=== PATIENT | female | born 1975 | race Caucasian/White ===

== ENCOUNTER 2024-07-20 10:02 | Outpatient (CLI) | payer MEDICARE, MEDICAID, SELFPAY ==
--- NOTE | ~2024-07-20 | US_ITS ---
EXAMINATION: US venous doppler LE RT DATE: 07/20/2024 10:43 INDICATION: Right lower limb pain TECHNIQUE: Grayscale ultrasound images without and with compression and Doppler ultrasound images of the right lower extremity veins were obtained. COMPARISON: None. FINDINGS: The visualized portions of right common femoral vein, profunda (deep) femoral vein, femoral vein, pop liteal vein, peroneal trunk, posterior tibial veins, peroneal veins, gastrocnemius vein and greater s aphenous vein outflow are patent. There is a 3.0 x 1.4 x 3.0 cm anechoic fluid collection along the m edial aspect of the right knee centered along the level of the joint line. IMPRESSION: 1. No deep venous thrombosis in the right lower limb. 2. 3.0 x 1.4 x 3.0 cm fluid collection along the medial aspect of the right knee which could represen t either a portion of a right knee joint effusion, a para meniscal cyst or other ganglion cyst. Reviewed, dictated and finalized at location A. IMPRESSION: 1. No deep venous thrombosis in the right lower limb. 2. 3.0 x 1.4 x 3.0 cm fluid collection along the medial aspect of the right kne e which could represent either a portion of a right knee joint effusion, a para meniscal cyst or other ganglion cyst.
== END 2024-07-20 10:03 | disposition home or self-care (01) ==
LOC: ANHIMG 10:04
PROVIDERS: PCP Family Medicine; Visit Provider Registered Nurse
DX: M79.661 Pain in right lower leg (principal)
CPT/HCPCS: 93971

== ENCOUNTER 2024-09-26 14:45 | Outpatient (RCR) | payer MEDICARE, MEDICAID, SELFPAY ==
--- NOTE | 2024-08-29 13:02 | OPREHPOC ---
Outpatient Therapy Plan of Care This is a Multidisciplinary Plan of Care that may contain components documented by all disciplines (PT, OT, and ST.) PT Problem 1 PT Problem #1 Knowledge Deficit PT Goal 1 Goal / Goal Update [place] with HEP Target Visit 4 PT Goal 2 Goal / Goal Update Demonstrate 75% reduction in palpable tenderness to left medial knee Progress Partially Met PT Problem 2 PT Problem #2 Impaired Range of Motion PT Goal 1 Goal / Goal Update 1. Achieve 0 degrees of right knee extension ROM to improve terminal stance 2. Achieve 125 degrees of R knee flexion ROM through pain free arc Target Visit 8 PT Problem 3 PT Problem #3 Impaired Functional Mobil PT Goal 1 Goal / Goal Update Report <10% disability on LEFS indicating gross functional improvement of affected knee Target Visit 8
--- NOTE | 2024-08-29 13:03 | PTOPEVAL1 ---
Assessment and note entered by Socrates Mejia, PT Evaluation Information Assessment Status Evaluation Diagnosis Unilateral OA of right knee ICD-10 Condition Codes (PT) M25.561 Onset May 2024 Subjective Information Reports that she woke up one night with medial knee pain. She has apnea and typically sleeps in the same position all night. She does not have a lot of pain with walking but notices it. She has a lot of pain with pressure and palpation. Denies groin pain or radicular pain. Reported Pain Level Pain Score 2: Self Report Assessment PT Clinical Summary Patient presents with localized pain likely related to soft tissue. Patient does not have significant mechanical related knee pain with walking but does have pain with eccentric activity . Patient will benefit form skilled therapy to address these deficits to improve knee stability and reduce pain in functional activity. Plan of Care Interventions Electrical Stimulation,Gait Training,Hot Pack/Cold Pack,Manual Therapy,Neuro Re-education, Therapeutic Activities,Therapeutic Exercise, Ultrasound PT Services Indicated Yes Treatment Frequency and 2x/week for 8 visits Duration These treatments will address the objective and functional deficits as defined above. The patient will be advanced safely and appropriately in order for the patient to progress towards his/her prior level of function. Additional exercises will be introduced and as well as a comprehensive home exercise program upon discharge, if needed, ?to ensure carryover of functional gains achieved in the clinic. This treatment plan has been reviewed and agreement upon by the patient.
--- NOTE | 2024-09-23 14:34 | PCPTNOTE ---
No call No show, reason unknown. AKSanta
--- NOTE | 2024-09-26 15:38 | OPREHPOC ---
Outpatient Therapy Plan of Care This is a Multidisciplinary Plan of Care that may contain components documented by all disciplines (PT, OT, and ST.) PT Problem 1 PT Problem #1 Knowledge Deficit PT Goal 1 Goal / Goal Update [place] with HEP Target Visit 4 Progress Met PT Goal 2 Goal / Goal Update Demonstrate 75% reduction in palpable tenderness to left medial knee Progress Partially Met PT Problem 2 PT Problem #2 Impaired Range of Motion PT Goal 1 Goal / Goal Update 1. Achieve 0 degrees of right knee extension ROM to improve terminal stance 2. Achieve 125 degrees of R knee flexion ROM through pain free arc Target Visit 8 Progress Met PT Problem 3 PT Problem #3 Impaired Functional Mobility PT Goal 1 Goal / Goal Update Report <10% disability on LEFS indicating gross functional improvement of affected knee Target Visit 8 Progress Met
--- NOTE | 2024-09-26 15:38 | PTOPDC ---
Assessment and note entered by Socrates Mejia, PT Evaluation Information Assessment Status Discharge Diagnosis Unilateral OA of right knee ICD-10 Condition Codes (PT) Pain in right knee M25.561 Onset May 2024 Subjective Information Reports that she feels she is doing much better. Still having some gait issues due to having toenails removed from her left foot. Feels comfortable with her exercises and feels comfortable with discharge to [facility] at this time. Reported Pain Level Pain Score 0: Self Report Assessment PT Clinical Summary Patient has met all goals for therapy and is suitable for discharge to [facility] at this time. No concerns with current HEP performance and she demonstrates understanding. Plan of Care PT Services Indicated Yes
== END 2024-09-27 12:11 | disposition home or self-care (01) ==
LOC: ANHPT 14:45
PROVIDERS: PCP Family Medicine; Visit Provider Nurse Practitioner Family
DX: M17.11 Unilateral primary osteoarthritis, right knee (principal); S83.411A Sprain of medial collateral ligament of right knee, initial encounter
CPT/HCPCS: 97035; 97110; 97116; 97140; 97161

== ENCOUNTER 2025-01-11 11:05 | Emergency (ER) | payer MEDICARE, MEDICAID, SELFPAY ==
--- NOTE | ~2025-01-11 | XR_ITS ---
CHEST RADIOGRAPH, PA AND LATERAL CLINICAL HISTORY: chest pain X 3 WEEKS . COMPARISON: None available TECHNIQUE: PA and lateral views of the chest. FINDINGS The cardiomediastinal silhouette is unremarkable. The lungs are clear. IMPRESSION: No focal infiltrate or effusion. Reviewed, dictated and finalized at location A.
--- NOTE | 2025-01-11 11:07 | ECG_ITS ---
Test Date: 2025-01-11 11:14:47 Measurements Intervals [place] Rate: 76 P: 69 AR: 157 QRS: 55 QRSD: 71 T: 30 QT: 379 QTc: 426 Interpretive Statements SINUS RHYTHM LOW QRS VOLTAGE IN PRECORDIAL LEADS BORDERLINE ST-T WAVE ABNORMALITY- ANT/INF LEADS BASELINE ARTIFACT- I, II, III, AVR, AVL, AVF, V4-V6 BORDERLINE ECG No previous ECG available for comparison Electronically Signed On 01-11-2025 11:28:46 CDT by Emir Munguia D.O.
[2025-01-11 11:09] VITALS: BP 146/81; PULSE 76; RESP 14; TEMP 37.2; O2SAT 98
[2025-01-11 11:34] LABS: Basophils Percent Auto 0.7 % (0.2-1.2); Eosinophils Absolute Auto 0.1 K/mm3 (0-0.3); Eosinophils Percent Auto 1.1 % (0-4.4); Hematocrit 46.1 % (37.0-47.0); Hemoglobin 15.9 g/dL (12.0-15.0); Immature Granulocyte Absolute 0.03 K/mm3 (0.00-0.031); Immature Granulocyte Percent A 0.5 % (0-0.5); Immature Platelet Fraction Pct 7.3 % (0.9-11.2); Lymphocytes Absolute Auto 1.67 K/mm3 (0.9-3.2); Lymphocytes Percent Auto 29.2 % (18.3-44.2); Mean Corpuscular HGB Conc 34.5 g/dl (32-36); Mean Corpuscular Hemoglobin 32.4 pg (26-34); Mean Corpuscular Volume 93.9 fl (80-100); Mean Platelet Volume 11.6 fl (7.4-10.4); Monocytes Absolute Auto 0.4 K/mm3 (0.1-0.6); Monocytes Percent Auto 6.1 % (2.6-8.5); Neutrophils Absolute Auto 3.6 K/mm3 (1.3-6.7); Neutrophils Percent Auto 62.4 % (45.5-73.1); Platelet Count Result 137 k/mm3 (150-375); Red Blood Count 4.91 M/mm3 (4.2-5.4); Red Cell Distribution Width 14.7 % (11.5-14.5); White Blood Count 5.7 K/mm3 (4.5-10.0)
[2025-01-11 11:37] VITALS: O2SAT 98
[2025-01-11 11:38] VITALS: PULSE 78
--- NOTE | 2025-01-11 11:38 | ED.CHESTPAIN ---
HPI - Chest Pain General Chief Complaint: Chest Pain Stated Complaint: chest pain Time Seen by Provider: 01/11/25 11:36 Source: patient and family Mode of arrival: ambulatory Limitations: no limitations History of Present Illness HPI narrative: 49 years old white female history of bipolar, came to the ED with intermittent right chest sharp stabbing pain for the last 3 weeks, no aggravating or relieving factors, mostly at rest, last maximum 2-3 minutes. Currently patient is asymptomatic. Patient smokes cigarettes, denying any alcohol or drug use or abuse. Related Data Home Medications ?Medication ?Instructions ?Recorded ?Confirmed ?Last Taken ?Type buspirone 30 mg tablet 30 mg PO TID 08/08/24 12/02/24 Unknown History cholecalciferol (vitamin D3) 50 50 mcg PO DAILY 08/08/24 12/02/24 Unknown History mcg (2,000 unit) capsule folic acid 1 mg tablet 1 mg PO DAILY 08/08/24 12/02/24 Unknown History topiramate 25 mg tablet (Topamax) 25 mg PO BID 08/08/24 12/02/24 Unknown History ziprasidone HCl 60 mg capsule 60 mg PO .2x/day 08/12/24 12/02/24 Unknown History (Geodon) adalimumab 40 mg/0.4 mL mg subcut 11/30/24 12/02/24 Unknown History subcutaneous pen kit (Humira(CF) Pen) methotrexate sodium 2.5 mg tablet 20 mg PO WEEKLY 11/30/24 12/02/24 Unknown History Allergies Allergy/AdvReac Type Severity Reaction Status Date / Time hydrocodone AdvReac Severe Itching Verified 11/30/24 14:46 iodine AdvReac Intermediate Swelling Verified 11/30/24 14:46 of Lip/Tongue/Throat Review of Systems Review of Systems: All systems reviewed & are unremarkable except as noted in HPI and below PMFSH Past Medical History Medical History Hamstring strain MCL sprain of right knee Right knee DJD Right knee pain Surgical History Surgical History History of parathyroidectomy 2021 History of laparoscopic cholecystectomy 2009 History of appendectomy 2001 Social History Social History Smoking status: Current every day smoker Alcohol intake: never Substance use type: marijuana Exam Narrative: General appearance: Well-developed, well-nourished Skin: Normal color Head: Normocephalic, nontraumatic Eyes: Clear conjunctiva ENT: Oropharynx normal, ears normal, nose normal Neck: Supple, nontender Chest and respiratory: Airway patent, no respiratory distress, no accessory muscle use Heart: Regular rate/rhythm Abdomen: Soft, nontender, no organomegaly, quiet bowel sounds Vascular: Normal peripheral pulses, normal capillary refill. 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, no gross motor deficit Course Vital Signs Vital signs: Vital Signs Temperature 37.2 C 01/11/25 11:09 Pulse Rate 76 01/11/25 11:09 Respiratory Rate 14 01/11/25 11:09 Blood Pressure 146/81 H 01/11/25 11:09 Pulse Oximetry 98 01/11/25 11:09 Oxygen Delivery Room Air 01/11/25 11:09 Temperature 37.2 C 01/11/25 11:09 Pulse Rate 72 01/11/25 12:32 Respiratory Rate 14 01/11/25 12:32 Blood Pressure 139/78 01/11/25 12:32 Pulse Oximetry 99 01/11/25 12:32 Oxygen Delivery Room Air 01/11/25 11:37 MDM - Chest Pain MDM Narrative Medical decision making narrative: Patient presents with intermittent right chest pain Vital signs showing blood pressure 146/81 otherwise within normal limit Physical examination showed tearful eyes Differential diagnosis anxiety like symptoms, musculoskeletal, less likely coronary artery disease, pulmonary embolism, pneumonia Blood workup today includes CBC, CMP, troponin, D-dimer showed hemoglobin 15.9, platelet 137, otherwise insignificant abnormalities Chest x-ray showed no acute acute abnormality EKG showed normal sinus rhythm Right chest pain high likely secondary to musculoskeletal versus anxiety like symptoms. Discharged on Tylenol, ibuprofen as needed, follow-up with her psychiatrist for further evaluation. The pt was discharged to home.the pt,s condition upon discharge was fair,education was provided to the pt in reference to the final impression,discharge study results,treatment,prognosis and need for follow up . Differential Diagnosis Differential diagnosis: Likely other (As above) Medical Records Data Attestation: I reviewed the patient's medical records. Lab Data Attestation: I reviewed the patient's lab results. 01/11/25 11:27 01/11/25 11:27 Labs: Lab Results 01/11/25 Range/Units 11:27 WBC 5.7 (4.5-10.0) K/mm3 RBC 4.91 (4.2-5.4) M/mm3 Hgb 15.9 H (12.0-15.0) g/dL Hct 46.1 (37.0-47.0) % MCV 93.9 (80-100) fl MCH 32.4 (26-34) pg MCHC 34.5 (32-36) g/dl RDW 14.7 H (11.5-14.5) % Plt Count 137 L (150-375) k/mm3 MPV 11.6 H (7.4-10.4) fl Immature Gran % (Auto) 0.5 (0-0.5) % Neut % (Auto) 62.4 (45.5-73.1) % Lymph % (Auto) 29.2 (18.3-44.2) % [place] % (Auto) 6.1 (2.6-8.5) % Eos % (Auto) 1.1 (0-4.4) % Baso % (Auto) 0.7 (0.2-1.2) % Lymph # (Auto) 1.67 (0.9-3.2) K/mm3 [place] # (Auto) 0.4 (0.1-0.6) K/mm3 Eos # (Auto) 0.1 (0-0.3) K/mm3 Baso # (Auto) 0.0 (0.0-0.1) K/mm3 Abs Immat Gran (auto) 0.03 (0.00-0.031) K/mm3 Absolute Neuts (auto) 3.6 (1.3-6.7) K/mm3 Absolute Nucleated RBC 0.000 (0.0-0.012) K/mm3 Nucleated RBC % 0.0 (0.0-0.2) % % Immature Plt Fraction 7.3 (0.9-11.2) % PT 13.4 (11.1-14.7) Seconds INR 1.0 APTT 21.7 L (22.3-36.8) Seconds D-Dimer 0.45 (<0.48) ug/mL Sodium 139 (137-145) mmol/L Potassium 4.8 (3.4-5.0) mmol/L Chloride 104 (98-107) mmol/L Carbon Dioxide 28 (22-30) mmol/L Anion Gap 7 (4-12) mmol/L BUN 22 H (7-17) mg/dL Creatinine 1.03 H (0.7-1.0) mg/dL Estim Creat Clear Calc 63 ml/min Estimated GFR 56 L (59 - ) Glucose 104 (65-110) mg/dL Calcium 8.8 (8.4-10.2) mg/dL Total Bilirubin 0.9 (0.2-1.3) mg/dL AST 23 (14-36) U/L ALT 15 (6-35) U/L Alkaline Phosphatase 65 (38-126) U/L Troponin I 0.024 (0.000-0.034) ng/mL NT-Pro-B Natriuret Pep 57 (19.9-100) pg/mL Total Protein 7.0 (6.3-8.2) g/dL Albumin 4.2 (3.5-5.1) g/dL Lipase 61 (23-300) U/L Imaging Data Radiologist's impression: Impressions Chest X-Ray 01/11/25 12:13 IMPRESSION: No focal infiltrate or effusion. ECG Data EKG #1: Attestation: I personally reviewed and interpreted this ECG as follows: ECG completion date: 01/11/25 Interpretation: Normal sinus rhythm at 76 beats per minute, low QRS voltage in precordial leads, borderline ST T-wave abnormality, borderline EKG, no previous EKG available for comparison Discharge Plan Discharge Clinical Impression: Intermittent right-sided chest pain Patient Disposition: Home Condition: Stable Instructions: Chest Pain (ED) Additional Instructions: Return if symptoms are worsening , call your family physician for appointment, take Tyleno, ibuprofen as as needed for aches and pain, continue home medications. Patient Language: Georgian Prescriptions: No Action buspirone 30 mg tablet 30 mg PO TID topiramate [Topamax] 25 mg tablet 25 mg PO BID cholecalciferol (vitamin D3) 50 mcg (2,000 unit) capsule 50 mcg PO DAILY folic acid 1 mg tablet 1 mg PO DAILY ziprasidone HCl [Geodon] 60 mg capsule 60 mg PO .2x/day Rx Instructions: give with food (meal/snack) Humira(CF) Pen 40 mg/0.4 mL pen injector kit subcut methotrexate sodium 2.5 mg tablet 20 mg PO WEEKLY Follow-up/Referrals: Willem Stone MD [Primary Care Provider] -
[2025-01-11 12:07] LABS: Prothrombin Time 13.4 Seconds (11.1-14.7)
[2025-01-11 12:08] LABS: Partial Thromboplastin Time 21.7 Seconds (22.3-36.8)
[2025-01-11 12:13] LABS: NT Pro B Type Natriuretic Pept 57 pg/mL (19.9-100)
[2025-01-11 12:20] LABS: D Dimer 0.45 ug/mL (<0.48)
[2025-01-11 12:32] VITALS: BP 139/78; PULSE 72; RESP 14; O2SAT 99
[2025-01-11] MEDS: ASPIRIN 81 MG CHEWABLE TABLET 324 MG PO (12:32)
[2025-01-11] MEDS: LORazepam (*CRX) 1 MG TABLET PO (12:32)
[2025-01-11 12:35] LABS: Alanine Aminotransferase 15 U/L (6-35); Albumin Level 4.2 g/dL (3.5-5.1); Alkaline Phosphatase 65 U/L (38-126); Anion Gap 7 mmol/L (4-12); Aspartate Amino Transferase 23 U/L (14-36); Bilirubin,Total 0.9 mg/dL (0.2-1.3); Blood Urea Nitrogen 22 mg/dL (7-17); Calcium 8.8 mg/dL (8.4-10.2); Carbon Dioxide 28 mmol/L (22-30); Chloride 104 mmol/L (98-107); Estimated CRCL calculation 63 ml/min; Estimated Glomerular Filt Rate 56; Glucose 104 mg/dL (65-110); Lipase 61 U/L (23-300); Potassium 4.8 mmol/L (3.4-5.0); Sodium 139 mmol/L (137-145)
[2025-01-11 12:42] LABS: Troponin I 0.024 ng/mL (0.000-0.034)
--- OUTSIDE RECORDS SUMMARY | 2025-01-11 12:46 | XMS_ITS | Clinical Summary ---
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 Hives post CT injection years ago. Hives post CT injection years ago. Iodine Povidone-Iodine Swelling Medium 09/29/2016 Medications busPIRone (BUSPAR) 30 mg tablet Take 1 tablet (30 mg total) by mouth 2 (two) times a day 9 Active lidocaine (GLYDO) 2 % jelly in applicator Apply to knees twice a day as needed. 5 Active methadone (DOLOPHINE) 10 mg/mL injection Acti ve raNITIdine (ZANTAC) 300 mg tablet 9 Active docusate calcium (COLACE) 240 mg capsuleIndicatio ns:constipation daily Acti ve calcium carbonate (TUMS) 500 mg (200 mg elemental) chewable tablet daily Acti ve gentian patrick 1 % topical solutionIndicati ons:cutaneous candidiasis Apply 0.5 mL topically 4 (four) times a day Apply to feet 59 mL 5 9 Active Additional Information Patient not taking.Reported on 10/12/2024 albuterol HFA (PROVENTIL HFA,VENTOLIN HFA,PROAIR HFA) 90 mcg/actuation inhaler ProAir HFA 90 mcg/actuation aerosol inhaler 9 Active furosemide (LASIX) 20 mg tablet furosemide 20 mg tablet 9 Active naloxone (NARCAN) 4 mg/actuation spray,non-aeroso l Narcan 4 mg/actuation nasal spray Active cycloSPORINE (RESTASIS) 0.05 % ophthalmic emulsion Administer 1 drop into both eyes 2 (two) times a day 60 mL 11 0 Active Additional Information Patient not taking.Reported on 10/12/2024 Climara Pro 0.045-0.015 mg/24 hr 1 Active fluconazole (DIFLUCAN) 150 mg tablet 1 Active nystatin ointment 1 Active QUEtiapine (SEROquel) 25 mg tablet 1 Active mometasone (ELOCON) 0.1 % ointment 1 Active metroNIDAZOLE (FLAGYL) 500 mg tablet 1 Active ammonium lactate (LAC-HYDRIN) 12 % lotion ammonium lactate 12 % lotion apply to feet twice daily as needed Active baclofen (LIORESAL) 10 mg tablet baclofen 10 mg tablet TK 1 T PO TID PRN Active ketoconazole (NIZORAL) 2 % cream ketoconazole 2 % topical cream Active methadone (DOLOPHINE) concentrated solution 10 mg/mL Take 2 mL (20 mg total) by mouth every 6 (six) hours as needed for pain Taking a total of 80 mg daily Active hydrOXYzine (VISTARIL) 25 mg capsule 2 Active topiramate (TOPAMAX) 25 mg tablet Take 1 tablet (25 mg total) by mouth daily 4 Active naproxen (NAPROSYN) 500 mg tablet Take 1 tablet (500 mg total) by mouth 2 (two) times a day 4 Active tacrolimus (PROTOPIC) 0.1 % ointmentIndicati ons:Psoriasis vulgaris Apply topically 2 (two) times a day Apply to groin area 100 g 2 4 Active ziprasidone (GEODON) 60 mg capsule 4 Active ergocalciferol, vitamin D2, (VITAMIN D2 ORAL) Take by mouth Active clobetasoL (TEMOVATE) 0.05 % ointmentIndicati ons:Psoriasis vulgaris Apply topically 2 (two) times a day Apply to thick plaques on hands and soles. 30 g 3 4 Active Additional Information Patient not taking.Reported on 10/12/2024 diclofenac sodium (VOLTAREN) 1 % gelIndications:P soriatic arthritis (HCC) Apply 2 g topically 3 (three) times a day as needed (pain) To both thumbs 350 g 1 4 Active folic acid (FOLVITE) 1 mg tabletIndication s:High risk medication use,Psoriasis with arthropathy (HCC) TAKE 1 TABLET(1 MG) BY MOUTH DAILY 90 tablet 3 4 Active methotrexate 2.5 mg tabletIndication s:Psoriatic arthropathy (HCC) TAKE 8 TABLETS( 20 MG TOTAL) BY MOUTH ONCE A WEEK( DOSE INCREASE) 96 tablet 1 4 Active adalimumab (Humira,CF, Pen) 40 mg/0.4 mL pen injector kitIndications:P soriatic Arthritis Inject 0.4 mL (40 mg total) under the skin every 14 (fourteen) days 6 each 2 5 Active Active Problems Problem Noted Date Diagnosed Date Preglaucoma of both eyes 02/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 Fields visual field (HVF) and OCT normal. No FHx with normal IOPs. Monitor annually. Assessment & Plan (01/05/2020 11:36 AM CDT): Testing re-assuring - normal RNFL thickness both eyes (OU). Will obtain baseline visual field (VF) next visit. IOPs normal range. No Fhx. Assessment & Plan (02/10/2019 4:52 PM CDT): Cupping appears Physiologic No FHx Normal IOPs Dry eye syndrome of both eyes 02/10/2019 Assessment & Plan (06/26/2020 5:16 PM CDT): Improved ocular surface and much better/solid endpoints on refraction. Will discontinue Restasis (burning) and try Xiidra. Recommend Retaine drops 3-4 x/day both eyes (OU) if insurance will not cover Xiidra. Inserted new lower punctal plug right eye (OD). Assessment & Plan (12/26/2019 11:21 AM CDT): Ignacio's test showing minimal to no tear production. Concern for Sjogrens as pt also reports dry mouth. (Will alert Rheum). Start Restasis BID both eyes (OU) - recommend OTC artificial tear (Soothe, Systane, Refresh) as needed. Assessment & Plan (12/19/2019 5:07 PM CDT): Pt ed - minimal to no tear production. Start Restasis BID both eyes (OU). Pt admits to dry mouth as well - alert PCP - concenr for Sjogren's syndrome 0.6 mm Oasys punctal plugs inserted today R/L lower puncta. Unable to get stable endpoints on refraction - pt ed d/t ocular surface, decreased tear production Assessment & Plan (02/10/2019 4:52 PM CDT): Mod-Severe KIRAN left eye (OS)>OD. Start Celluvisc drops QID+ both eyes (OU). Cont Systane PRN. Pt ed on dx. RTC for f/u 2 mos. Consider punctal plugs at this visit. Refractive error 02/10/2019 Assessment & Plan (06/26/2020 5:15 PM CDT): Release updated glasses Rx, recommend PAL Assessment & Plan (12/19/2019 5:05 PM CDT): Hold Rx util the tear film improves Assessment & Plan (02/10/2019 4:53 PM CDT): Update MRx Age-related nuclear cataract of both eyes 2018 Assessment & Plan (02/10/2019 4:54 PM CDT): Defer cataract surgery until signs and symptoms indicate. Pt was educated on the diagnosis. Recommend daily UV protection. 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 [place] [address] Deborah Andrea RPh from Last 3 Months Immunizations Immunization Administration Dates Next Due Influenza, Quadrivalent, Spl it, Preservative Free, Intramuscular 07/28/2019 Influenza, Trivalent, IM (MDV) 10/10/2014 Pneumococcal Polysaccharide PPV23 03/11/2017,11/2011 Medical History Medical History Date Comments Infectious viral hepatitis Psoriatic arthritis (HCC) Breathing difficulty Heart murmur Keloid Psychiatric illness Bunion of great toe of left foot Family History Medical History Relation Name Comments No Known Problems Mother Relation Name Status Comments Mother Social History Tobacco Use Types Packs/Day Years Used Date Smoking Tobacco: Every Day Smokeless Tobacco: Never Tobacco Cessation:Ready to Q uit: Not Asked; Counseling Given: Not Answered Comments Unknown Sex and Gender Information Value Date Recorded Sex Assigned at Not on file Legal Sex 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 Gender Identity Not on file Sexual Orientation Not on file Obstetrics History Last Filed Vital Signs Vital Sign Reading Time Taken Comments Blood Pressure 104/73 10/12/2024 12:51 PM BARREL STAVE INSPECTOR Pulse 64 10/12/2024 12:51 PM BARREL STAVE INSPECTOR Temperature 36.8 C (98.3 F) 10/12/2024 12:51 PM BARREL STAVE INSPECTOR Respiratory Rate - - Oxygen Saturation 97% 02/08/2015 1:43 PM CDT Inhaled Oxygen Concentration - - Weight 90.7 kg (200 lb) 10/12/2024 12:51 PM BARREL STAVE INSPECTOR Height 165.1 cm (5' 5 ) 10/12/2024 12:51 PM BARREL STAVE INSPECTOR Body Mass Index 33.28 10/12/2024 12:51 PM BARREL STAVE INSPECTOR Plan of Treatment Health Maintenance Due Date Last Done Comments Breast Cancer Screening-Mammogram 1973 Cervical Cancer Screening 1973 Colon Cancer Screening-Colonoscopy 1973 Depression Screening 1973 DTaP/Tdap/Td Vaccine (1 - Tdap) 02/19/1984 Hepatitis B Screening 1991 Regular Well Visit/Exam 18-64 1991 Zoster Vaccine (1 of 2) 02/19/1992 Pneumococcal vaccine <65 (3 of 3 - PCV) 03/11/2018 03/11/2017, 08/06/2012 Influenza Vaccine (Season Ended) 2025 07/28/20 19, 10/10/2014 Hepatitis C Screening Completed 11/07/2020 , 06/01/2019, 11/17/2018, Additional history exists Procedures Procedure Name Priority Date/Time Associated Diagnosis Comments HEPATITIS C RNA, QUANTITATIVE, PCR Routine 11/07/2020 11:29 AM BARREL STAVE INSPECTOR High risk medication use Hepatitis C virus infection cured after antiviral drug therapy from Last 3 Months or Most Recently Relevant to Health Maintenance Results * Hepatitis C (HCV) RNA PCR, quantitative (11/07/2020 11:29 AM BARREL STAVE INSPECTOR) Pathologist [facility] HCV RNA result Not Detected [facility] Comment: Interpretive data: The quantifiable range of this assay is 15 IU/mL to 100,000,000 IU/mL (1.18 log IU/mL to 8.00 log IU/mL). Testing was performed by the [employer] AmpliPrep/JABARI TaqMan HCV Test version 2.0 ([employer] Testing performed at [facility] Current Interpretive Data was last revised on 2015. Blood specimen (specimen) 11/07/2020 11:29 AM BARREL STAVE INSPECTOR 11/07/2020 12:05 PM BARREL STAVE INSPECTOR us Jo Braden MD LAB MICROBIOLOGY - GENE RAL ORDERABLES Final Result [facility] Department [place] [address] from Last 3 Months or Most Recently Relevant to Health Maintenance Insurance [employer] [facility] MEDICARE [facility] MEDICARE Address: [facility] [address] [place] [address] [facility] MEDICARE [facility] MEDICARE Address: [facility] [address] [place] [address] [facility] CHOICE PLUS [facility] HMO/PPO Address: [facility] [address] [place] [address] Care Teams Machinery Repair Maintenance Supervisor Relationship Specialty Start Date End Date No, Physician PCP - General 11/07/20
--- OUTSIDE RECORDS SUMMARY | 2025-01-11 12:46 | XMS_ITS | Referral Summary ---
Author Organization [facility] Address Formerly [facility] [place] [address] Care Team Providers Care Insurance Defense Attorney Name Role Phone No, Physician Primary Care Provider [phone] Encounters Date Type Department Care Team Description 10/13/[address] [facility] [address] [place] [address] Deborah Andrea RPh from Last 3 Months Allergies Active Allergy Reactions Criticality Noted Date [...] 02/08/2015 Snoring 02/08/2015 Insomnia 02/08/2015 Anxiety 02/08/2015 Immunizations Immunization Administration Dates Next Due Influenza, Quadrivalent, Spl it, Preservative Free, Intramuscular 07/28/2019 Influenza, Trivalent, IM (MDV) 10/10/2014 Pneumococcal Polysaccharide PPV23 03/11/2017,11/2011 Social History Tobacco Use Types Packs/Day Years Used Date Smoking Tobacco: Every Day Smokeless Tobacco: Never Tobacco Cessation:Ready to Q uit: Not Asked; Counseling Given: Not Answered Comments Unknown Sex and Gender Information Value Date Recorded Sex Assigned at Not on file Legal Sex Female 3:51 AM LIVESTOCK EXHIBITOR Gender Identity Not on file Sexual Orientation Not on file Last Filed Vital Signs Vital Sign Reading Time Taken Comments Blood Pressure 104/73 10/12/2024 12:51 PM LIVESTOCK EXHIBITOR Pulse 64 10/12/2024 12:51 PM LIVESTOCK EXHIBITOR Temperature 36.8 C (98.3 F) 10/12/2024 12:51 PM LIVESTOCK EXHIBITOR Respiratory Rate - - Oxygen Saturation 97% 02/08/2015 1:43 PM CDT Inhaled Oxygen Concentration - - Weight 90.7 kg (200 lb) 10/12/2024 12:51 PM LIVESTOCK EXHIBITOR Height 165.1 cm (5' 5 ) 10/12/2024 12:51 PM LIVESTOCK EXHIBITOR Body Mass Index 33.28 10/12/2024 12:51 PM LIVESTOCK EXHIBITOR Plan of Treatment Not on file Procedures Procedure Name Priority Date/Time Associated Diagnosis Comments HEPATITIS C RNA, QUANTITATIVE, PCR Routine 11/07/2020 11:29 AM LIVESTOCK EXHIBITOR High risk medication use Hepatitis C virus infection cured after antiviral drug therapy from Last 3 Months or Most Recently Relevant to Health Maintenance Results * Hepatitis C (HCV) RNA PCR, quantitative (11/07/2020 11:29 AM LIVESTOCK EXHIBITOR) HCV RNA result Not Detected AMELIA SHAIKH Comment: Interpretive data: The quantifiable range of this assay is 15 IU/mL to 100,000,000 IU/mL (1.18 log IU/mL to 8.00 log IU/mL). Testing was performed by the [employer]I AmpliPrep/JABARI TaqMan HCV Test version 2.0 ([employer] Testing performed at [facility] Current Interpretive Data was last revised on 2015. Blood specimen (specimen) 11/07/2020 11:29 AM LIVESTOCK EXHIBITOR 11/07/2020 12:05 PM LIVESTOCK EXHIBITOR Jo Braden MD LAB MICROBIOLOGY - GENE [facility] ORDERABLES Final Result AMELIA SHER [facility] Department [place] [address] from Last 3 Months or Most Recently Relevant to Health Maintenance Insurance IDPA [facility] MEDICARE ADVANTAGE [facility] MEDICARE Address: [id number] [place] [address] [id number] MEDICARE ADVANTAGE [facility] CHOICE PLUS [facility] HMO/PPO Address: [facility] [address] [place] [address] Care Teams Insurance Defense Attorney Relationship Specialty Start Date End Date No, Physician PCP - General 11/07/20
--- OUTSIDE RECORDS SUMMARY | 2025-01-11 12:46 | XMS_ITS | CONTINUITY OF CARE DOCUMENT ---
Author Name mauri dotson Address Unknown Organization [facility] Address [address] [place] [address] Phone [phone] Care Team Providers Care Mold Filler Plastic Dolls Name Role Phone Starr ROSS, Isidro Unavailable BARI DÍAZ MD Unavailable BARI DÍAZ MD Unavailable PROBLEMS Condition Status Date Provider Notes Bradycardia active [facility] Swollen limb active Kacie Herbert MD Tobacco abuse active Kacie Herbert MD [facility] methadone use active Kacie tinajero MD Psoriasis active Kacie Herbert MD Rheumatoid arthritis active Kacie Herbert MD Abnormal EKG active Kacie Herbert MD Anxiety active Kacie Herbert MD Cardiology examination active Isidro Clements MD Psoriatic arthritis active Isidro Clements MD Bipolar disorder active Isidro Clements MD Reich's disease, ? active Isidro Clements MD Diminished pedal pulses active Isidro Clements MD Age-related nuclear cataract of both eyes completed - Isidro Clements MD Imported from A: [facility] (03-Apr-2022 at 02:08:38 PM) Anaclitic depression completed - Isidro Clements MD Imported from [employer] (03-Apr-2022 at 02:08:38 PM) Anxiety completed - Isidro Clements MD Imported from [employer] [facility] (03-Apr-2022 at 02:08:38 PM) Bradycardia completed - Isidro Clements MD Imported from [employer] (03-Apr-2022 at 02:08:38 PM) Bronchial asthma completed - Isidro Clements MD Imported from [employer] (03-Apr-2022 at 02:08:38 PM) Dry eye syndrome of both eyes completed - Isidro Clements MD Imported from [employer] (03-Apr-2022 at 02:08:38 PM) Dry skin completed - Isidro Clements MD Imported from [employer] (03-Apr-2022 at 02:08:38 PM) Enuresis, nocturnal only completed - Isidro forde MD Imported from [employer] (03-Apr-2022 at 02:08:38 PM) Erythrocytosis completed - Isidro Clements MD Imp orted from [employer] (03-Apr-2022 at 02:08:38 PM) Fibromyalgia completed - Isidro Clements MD Imported from [employer] [facility] (03-Apr-2022 at 02:08:38 PM) Gastroesophageal reflux disease completed - Isidro Clements MD Imported from [employer] (03-Apr-2022 at 02:08:38 PM) Hepatitis C virus infection completed 2014 - Isidro Clements MD Imported from [employer] (03-Apr-2022 at 02:08:38 PM) History of parathyroidectomy completed 11/07/00 - Isidro Clements MD Imported from [facility] [facility] (03-Apr-2022 at 02:08:38 PM) Hypercalcemia completed - Isidro Clements MD Imported from [employer] [facility] (03-Apr-2022 at 02:08:38 PM) Hyperparathyroidism completed - Isidro Clements MD Imported from [employer] [facility] (03-Apr-2022 at 02:08:38 PM) Hyperplasia of parathyroid completed 12/03 - Isidro Clements MD Imported from [facility] [facility] (03-Apr-2022 at 02:08:38 PM) Ingrowing toenail completed - Isidro Clements MD Imported from [facility] [facility] (03-Apr-2022 at 02:08:38 PM) Insomnia completed - Isidro Clements MD Imported from [employer] [facility] (03-Apr-2022 at 02:08:38 PM) Lumbago completed - Isidro Clements MD Imported from [employer] [facility] (03-Apr-2022 at 02:08:38 PM) Muscle spasms of neck completed - Isidro Clements MD Imported from [facility] [facility] (03-Apr-2022 at 02:08:38 PM) Narcotic drug use completed - Isidro Clements MD Imported from [facility] [facility] (03-Apr-2022 at 02:08:38 PM) Onychomycosis completed - Isidro Clements MD Imported from [facility] [facility] (03-Apr-2022 at 02:08:38 PM) Optic nerve cupping of both eyes completed - Isidro Clements MD Imported from [employer] [facility] (03-Apr-2022 at 02:08:38 PM) Osteoarthrosis completed - Isidro Clements MD Imported from [employer] [facility] (03-Apr-2022 at 02:08:38 PM) Pain of hand completed - Isidro Clements MD Imported from [employer] [facility] (03-Apr-2022 at 02:08:38 PM) Pathological personality completed - Isidro Clements MD Imported from [employer] [facility] (03-Apr-2022 at 02:08:38 PM) Preglaucoma of both eyes completed - Isidro Clements MD Imported from [employer] [facility] (03-Apr-2022 at 02:08:38 PM) Psoriasis completed - Isidro Clements MD Imported from [employer] (03-Apr-2022 at 02:08:38 PM) Psoriasis with arthropathy completed 04/05 - Isidro Clements MD Imported from [facility] [facility] (03-Apr-2022 at 02:08:38 PM) Refractive error completed - Isidro Clements MD Imported from [employer] [facility] (03-Apr-2022 at 02:08:38 PM) Rheumatoid arthritis completed - Isidro Clements MD Imported from [employer] (03-Apr-2022 at 02:08:38 PM) Sleep apnea treated with nocturnal BiPAP completed - Isidro Clements MD Imported from [facility] [facility] (03-Apr-2022 at 02:08:38 PM) Snoring completed - Isidro Clements MD Imported from [employer] (03-Apr-2022 at 02:08:38 PM) Stage 3a chronic kidney disease completed - Isidro Clements MD Imported from [employer] (03-Apr-2022 at 02:08:38 PM) Swelling completed - Isidro Clements MD Imported from [facility] (03-Apr-2022 at 02:08:38 PM) Tear of medial meniscus of knee, current completed - Isidro Clements MD Imported from [facility] [facility] (03-Apr-2022 at 02:08:38 PM) Thyroid nodule completed - Isidro Clements MD Imported from [facility] [facility] (03-Apr-2022 at 02:08:38 PM) Tobacco dependence syndrome active Isidro pearson MD Imported from [facility] [facility] (03-Apr-2022 at 02:08:38 PM) Trochanteric bursitis completed - Isidro Clements MD Imported from [employer] [facility] (03-Apr-2022 at 02:08:38 PM) Erythrocytosis active Isidro Clements MD ENCOUNTERS Date Type Provider Location Encounter Diag nosis 04/28 - 04/29 In-person encounter Office Visit Isidro Clements MD [facility] Age-related nuclear cataract of both eye sAnaclitic depressionAnxietyBradycardiaBronchial asthmaDry eye syndrome of both eyesDry skinEnuresis, nocturnal onlyErythrocytosisFibromyalgiaGastroesophageal reflux diseaseHepatitis C virus infectionHistory of parathyroidectomyHypercalcemiaHyperparathyroidismHyp erplasia of parathyroidIngrowing toenailInsomniaLumbagoMuscle spasms of neckNarcotic drug useOnychomycosisOptic nerve cupping of both eyesOsteoarthrosisPain of handPathological personalityPreglaucoma of both eyesPsoriasisPsoriasis with arthropathyRefractive errorRheumatoid arthritisSleep apnea treated with nocturnal BiPAPSnoringStage 3a chronic kidney diseaseSwellingTear of medial meniscus of knee, currentThyroid noduleTrochanteric bursitisErythrocytosis 04/03 - 04/18 In-person encounter Office Visit Isidro Clements MD [facility] Cardiology examinationPsoriatic arthriti sBipolar disorderBerger's disease, ?Diminished pedal pulsesTobacco dependence syndrome 04/15 - 04/15 In-person encounter Office Visit Kacie Herbert MD [facility] 02/11 - 02/11 In-person encounter Office Visit Kacie Herbert MD [facility] Swollen limbTobacco abuseLong term metha done usePsoriasisRheumatoid arthritisAbnormal EKGAnxiety VITAL SIGNS Date Observation Value Provider Body Mass Index (Ratio) 29.95 kg/m2 Cuba Clements MD blood pressure, diastolic 68 mm[Hg] Sa ra Pardo blood pressure, systolic 111 mm[Hg] Fred a Pardo oxygen saturation, oximetry 38 % Sarita Pardo respiratory rate E&M 21 /min Sarita Si ms pulse rate 80 /min Sarita Pardo weight E&M 180 [lb_av] Sarita Pardo blood pressure, cuff size regular Sa ra Pardo height E&M 65 [in_i] Sarita Pardo Body Mass Index (Ratio) 30.12 kg/m2 Cuba Clements MD blood pressure, cuff size large Ke rri Gruenenfelder blood pressure, diastolic 80 mm[Hg] Ke rri Gruenenfelder blood pressure, systolic 138 mm[Hg] Ker ri Girishuenenfelder oxygen saturation, oximetry 96 % Leeann Coliner respiratory rate E&M 16 /min Leeann G ruenenfelder pulse rate 59 /min Leeann Rebecca lder weight E&M 181 [lb_av] Leeann Grueneace lder height E&M 65 [in_i] Leeann Gruenepaolo lder Body Mass Index (Ratio) 31.31 kg/m2 Lavelle Spangler blood pressure, cuff size regular Cy fercho Bernard blood pressure, diastolic 70 mm[Hg] Cy fercho Bernard blood pressure, systolic 130 mm[Hg] Pari Bernard oxygen saturation, oximetry 98 % Debby Bernard respiratory rate E&M 16 /min Debby Bernard pulse rate 64 /min Debby mack weight E&M 194 [lb_av] Debby mack height E&M 66 [in_i] Debby mack Body Mass Index (Ratio) 30.99 kg/m2 Trav Herbert MD blood pressure, cuff size large Ke rri Elina blood pressure, diastolic 80 mm[Hg] Ke rri Elina blood pressure, systolic 122 mm[Hg] Tamia Antoine oxygen saturation, oximetry 98 % Leeann Antoine respiratory rate E&M 20 /min Leeann morales pulse rate 74 /min Leeann Fernandez lder weight E&M 192 [lb_av] Leeann Fernandez lder height E&M 66 [in_i] Leeann Fernandez lder ALLERGIES Allergy Name Onset Date Reaction Criticality Status Povidone-Iodine Low Criticality acti ve Iodinated Contrast Media Low Critica lity active Contrast-Iodinated Agents Fo r Ct/Other Itching Itching Low Criticality active HYDROCODONE High Criticality active IVP DYE High Criticality active HYDROCODONE Low Criticality active IVP DYE Low Criticality active HISTORY OF MEDICATION USE Medication Status Instructions Dates Provider Indications Com ments ziprasidone HCl 40 mg capsule active 40 mg oral qieuser qieuser Imported from [facility]: [employer] [facility] (03-Apr-20 at 02:08:38 PM) ziprasidone HCl 20 mg capsule active null qieuser q[facility]user Imported from [employer]: [employer] (03-Apr-20 at 02:08:38 PM) raNITIdine active null qieuser [facility]user Imported from [employer]: [employer] [facility] (03-Apr-20 at 02:08:38 PM) nystatin 100,000 unit/gram ointment active null qieuser [facility]user Imported from [employer]: [employer] [facility] (03-Apr-20 at 02:08:38 PM) naloxone active null qieuser [employer] Imported from [employer]: [employer] [facility] (03-Apr-20 at 02:08:38 PM) mometasone 0.1% ointment active null qieuser [facility] Imported from [employer]: [employer] (03-Apr-20 at 02:08:38 PM) metronidazole 500 mg tablet active null qieuser [facility] Imported from [employer]: [employer] [facility] (03-Apr-20 at 02:08:38 PM) methotrexate sodium 2.5 mg tablet completed 20 mg oral - qieuser q[facility]user Imported from [employer]: [employer] (03-Apr-20 at 02:08:38 PM) methotrexate sodium 2.5 mg tablet active Oral qieuser q[facility]user Imported from [employer]: [employer] (03-Apr-20 at 02:08:38 PM) methadone 10 mg/mL concentrate active 20 mg oral qieuser [facility] Imported from [facility] [facility] (03-Apr-20 at 02:08:38 PM) methadone 10 mg/mL solution active null qieuser [facility] Imported from [employer] (03-Apr-20 at 02:08:38 PM) lidocaine active null qieuser [facility] Imported from [employer]: [employer] (03-Apr-20 at 02:08:38 PM) ketoconazole 2% cream active null q[facility]user [employer] Imported from [employer] (03-Apr-20 at 02:08:38 PM) gentian patrick 1% solution active .5 mL topical qieuser [facility] Imported from [employer] (03-Apr-20 at 02:08:38 PM) furosemide 20 mg tablet active null q[facility]user [employer] Imported from [employer] (03-Apr-20 at 02:08:38 PM) folic acid 1 mg tablet completed 1 mg oral - qieuser q[facility]user Imported from [employer] (03-Apr-20 at 02:08:38 PM) folic acid 1 mg tablet active 1 mg Oral qieuser [facility]user Imported from [employer] (03-Apr-20 at 02:08:38 PM) fluconazole 150 mg tablet active null [facility]user [employer] Imported from [employer] (03-Apr-20 at 02:08:38 PM) docusate calcium 240 mg capsule active null qieuser [employer] Imported from [employer] (03-Apr-20 at 02:08:38 PM) diclofenac sodium 1% gel active 2 g topical qieuser [facility] Imported from [employer] (03-Apr-20 at 02:08:38 PM) cycloSPORINE active 1 [drp] each eye qieuser [facility] Imported from [employer] (03-Apr-20 at 02:08:38 PM) clobetasol 0.05% cream active topical qieuser [facility] Imported from [employer] (03-Apr-20 at 02:08:38 PM) calcium carbonate 200 mg calcium (500 mg) tablet,chewable active null qieuser [facility] Imported from [employer] (03-Apr-20 at 02:08:38 PM) buspirone 30 mg tablet active 30 mg oral qieuser [facility] Imported from [employer] (03-Apr-20 at 02:08:38 PM) baclofen 10 mg tablet active null qieuser [facility] Imported from [employer]: [facility] (03-Apr-20 at 02:08:38 PM) ammonium lactate 12% lotion active null qieuser [facility] Imported from [employer]: [facility] (03-Apr-20 at 02:08:38 PM) albuterol sulfate 90 mcg/actuation HFA aerosol inhaler active null q[facility]user [employer] Imported from [employer]: [employer] (03-Apr-20 at 02:08:38 PM) albuterol sulfate 90 mcg/actuation HFA aerosol inhaler active 2 {puff} Inhalation qieuser q[facility]user Imported from [employer]: [employer] (03-Apr-20 at 02:08:38 PM) Xiidra 5% dropperette active null qieuser [facility] Imported from [employer]: [facility] (03-Apr-20 at 02:08:38 PM) quetiapine 25 mg tablet active null qieuser [employer] Imported from [employer]: [employer] (03-Apr-20 at 02:08:38 PM) Drug or medicament active 80 mg Oral qieuser qieuser Imported from [employer]: [facility] (03-Apr-20 at 02:08:38 PM) Drug or medicament active 30 mg Oral qieuser [facility]user Imported from [employer]: [facility] (03-Apr-20 at 02:08:38 PM) Drug or medicament active 80 mg Oral qieuser [facility]user Imported from [employer]: [employer] [facility] (03-Apr-20 at 02:08:38 PM) Climara Pro 0.045-0.015 mg/24 hr patch weekly active null qieuser [employer] Imported from [employer]: [facility] (03-Apr-20 at 02:08:38 PM) folic acid 1 mg tablet active Isidro Clements MD ziprasidone HCl 40 mg capsule active Isidro Clements MD buspirone 30 mg tablet active Isidro Clements MD methotrexate sodium 2.5 mg tablet active Isidro Clements MD GEODON CAPSULE active 20 mg 1 by mouth twice daily Ximena Golden METHADONE HCL TABLET active take one pill a day Leeann Antoine SOCIAL HISTORY Date Observation Value Provider number of grandchildren Isidro Clements MD U janeen Clements MD social history reviewed E&M revi ewed - no changes required Isidro Clements MD social history E&M S moking History: P atient currently smokes every day. P atjeet has been counseled to quit. Isidro Clements MD smoking/tobacco cess ation, patient education and counseling yes Isidro Clements MD number of years as a smoker 35 a Isidro Clements MD smoking history, tot al pack/day 1 ppd Isidro Clements MD cigarette use yes Isidro Hickey smoking status Current every day smoker U janeen Clements MD drug use no Isidro Clements MD alcohol use no Isidro Clements MD social history reviewed E&M revi ewed - no changes required Isidro Clements MD social history E&M S moking History: P atient currently smokes every day. P atjeet has been counseled to quit. Isidro Clements MD smoking/tobacco cess ation, patient education and counseling yes Isidro Clements MD number of years as a smoker 35 a Leeann Antoine smoking history, tot al pack/day 1 ppd Leeann Antoine cigarette use yes Leeann hanson smoking status Current every day smoker K bere Antoine physical exercise, f requency, days per week 14 /wk Ximena Golden exercise type steps clager caffeine use, averag e drinks per day 4 /d ager smoking/tobacco cess ation, patient education and counseling yes clager smoking history, tot al pack/day 1.5 Ximenaclager cigarette use yes clager smoking status Current every day smoker Arash mcnally clager social history E&M S moking History: Debi ortiz currently smokes every day. Kacie Herbert MD social history reviewed E&M revi ewed - no changes required Kacie Herbert MD alcohol use no Debby Keron mack number of years as a smoker 30 a Debby Bernard smoking history, tot al pack/day 1.5 ppd Debby Marco Antonio cigarette use yes Debby Toma sales smoking status Current every day smoker C alfonsosrinivasa Marco Antonio number of grandchildren Kacie Herbert MD alcohol use no Leeannboo higginser number of years as a smoker 30 a Leeann Antoine smoking history, tot al pack/day 1.5 ppd Leeann Antoine cigarette use yes Leeann hanson smoking status Current every day smoker K bessiei Elina FAMILY HISTORY Family Member Condition Half Sister Family History of Co ronary Artery Disease: Half Sister Family History of CV A or Stroke: Mother Negative FH of Coron trevon Artery Disease Father Family History of Hy pertension: Father Family History of CV A or Stroke: INSURANCE PROVIDERS Payer name Policy type / Coverage type Bangs red green party ID AARP MEDICARE ADVANTAGE ([facility] COMPLETE PPO) Other [id number] HEALTHCARE AND FAMILY SERVICES Medicaid 0 [id number] ADVANCE DIRECTIVES Name Date DISCUSSED - NO DECISION MADE DISCUSSED - NO DECISION MADE TREATMENT PLAN Date Name Performer [id number],C, A lthough she still has symptoms, I do not think they are based on vascular disease. I have recommended she stop smoking but I don't think she has Buergher's disease. Isidro Clements MD [id number],S, T he Patient was reencouraged to stop smoking. Isidro Clements MD [id number],C,Will do an AB I Isidro Clements MD [id number],C,Advised to st op smoking. Kacie Herbert MD [id number],C,Management as per yourself. Kacie Herbert MD [id number],C,I n sinus rhythm. Her recent Telesentry showed sinus rhythm and no other abnormality. Stress test showed normal perfusion and echo showed normal LV size and function. Kacie Herbert MD [id number],C,T rouble with pain in her hips and is due to be seen at [facility] Kacie Herbert MD [id number],B, Kacie tinajero MD [id number],S, Kacie tinajero MD Cardiology: A lthough she still has symptoms, I do not think they are based on vascular disease. I have recommended she stop smoking but I don't think she has Buergher's disease. Isidro Clements MD Cardiology: T he Patient was reencouraged to stop smoking. Isidro Clements MD Cardiology:Will do an LANNY Isidro Clements MD Cardiology follow up :Advised to stop smoking. Kacie Herbert MD Cardiology follow up :Management as per yourself. Kacie Herbert MD Cardiology follow up :In sinus rhythm. Her recent Telesentry showed sinus rhythm and no other abnormality. Stress test showed normal perfusion and echo showed normal LV size and function. Kacie Herbert MD Cardiology follow up :Trouble with pain in her hips and is due to be seen at [facility] Kacie Herbert MD Cardiology New Patientn Kacie Herbert MD Cardiology New Patientn Kacie Herbert MD Date Name Arterial Duplex Bi-L ower EX Mobile Cardiac Tele STR - Adenosine Complete Echo HISTORY OF PROCEDURES Procedure Date Procedure Name Provider Procedure Notes S tatus EKG Isidro Clements MD completed EKG Kacie Herbert MD complet ed Regadenoson, 4 units Kacie Herbert MD completed Cardiolite, 2 units Kacie Herbert MD completed SPECT Images Kacie Herbert MD compl eted Stress EKG Kacie Herbert MD complet ed Mobile Cardiac Telem etry - Tech Kacie Herbert MD completed Mobile Cardiac Telem etry - Prof Kacie Herbert MD completed EKG Kacie Herbert MD complet ed
--- OUTSIDE RECORDS SUMMARY | 2025-01-11 12:47 | XMS_ITS | Clinical Summary ---
Author Organization [facility] Address [address] [place] [address] Care Team Providers Care Pe Teacher Name Role Phone Willem Stone MD Primary Care Provider [phone] Source Comments [facility],non-owned Affiliates and Associated Physician Practices is amultiple site organization consisting of ambulatory clinics and hospital sitesin [place], [place], [place] and [place]. This disclosure is being madepursuant to the Care Everywhere program and may not contain all information available regarding this patient. Last updated 18.[facility] [place] Allergies Active Allergy Reactions Criticality Noted Date Comments Contrast-Iodinated Agents For Ct/Other Urticaria,Itching Medium 10/31/[address] injection years ago. Hives post CT injection years ago. Hydrocodone Itching Medications * Be aware that medications may not be up to date on this document. Alwaysverify current medications with the patient. Medication Sig Dispensed Refills Start Date End Date Status METHADONE HCL PO Take 80 mg by mouth once daily Active folic acid (Folvite) 1 MG tablet 06/07/2022 Active busPIRone (Buspar) 30 MG tablet 07/14/2022 Active cyclobenzaprine (Flexeril) 5 MG tablet Take 1 (one) tablet by mouth 3 times daily 12/23/2022 Active vitamin D3 (Cholecalciferol) (25 MCG) 1000 UNIT capsule Take 25 mcg by mouth once daily Active tacrolimus (Protopic) 0.1 % ointment 11/02/2023 Active ziprasidone (Geodon) 60 MG capsule 11/12/2023 Active topiramate (Topamax) 25 MG tablet Take 1 (one) tablet by mouth 2 times daily Active diclofenac sodium (Voltaren) 1 % gel Apply 2 (two) g to affected area 3 times daily as needed 07/04/2024 Active ketoconazole (Nizoral) 2 % cream APPLY TOPICALLY TO THE AFFECTED toenails EVERY DAY Active Humira, 2 Pen, 40 MG/0.4ML injection INJECT 0.4ML SUBCUTANEOUS EVERY 14 DAYS 10/12/2024 Active clobetasol (Temovate) 0.05 % cream APPLY TOPICALLY TWICE DAILY TO HAND Active methotrexate 2.5 MG tablet Take 8 (eight) tablets by mouth every 7 days Active Active Problems Problem Noted Date Diagnosed Date Elevated hemoglobin 10/08/2022 Cigarette smoker 02/24/2022 Tinea pedis 02/24/2022 Hyperplasia of parathyroid 12/03/2021 History of parathyroidectomy 12/03/2021 Osteoarthrosis 11/18/2021 Tear of medial meniscus of knee, current 022 Dry skin 08/19/2021 Ingrowing toenail 08/19/2021 Thyroid nodule 06/25/2021 Hypercalcemia 03/12/2021 Hyperparathyroidism 03/12/2021 Stage 3a chronic kidney disease 03/08/2021 Onychomycosis 11/27/2020 Sleep apnea treated with nocturnal BiPAP 020 Overview (05/06/2021): Sleep Architecture: During this diagnostic study, the patient was monitored from 10:42 pm to 12:48 am. The patient slept for 118 minutes and had normal sleep efficiency of 93.6%. The patient's initial sleep latency was reduced at 2.5 minutes. The patient had no REM sleep during the diagnostic study. The wake after sleep onset (WASO) time was 6 minutes. The sleep architecture was as follows: stage N1: 6.4%; stage N2: 46.6%; stage N3: 47%; stage REM: 0%. Respiratory Analysis: The patient's overall apnea-hypopnea index (AHI) was increased at 32.5 per hour while the respiratory effort-related arousal index was 2 per hour. The overall respiratory disturbance index (RDI) was 34.5 per hour. The patient slept entirely in the supine position during the diagnostic study. There were 11 obstructive apneas, 17 central apneas, 21 mixed apneas, 15 hypopneas, and 4 respiratory effort-related arousals (RERA). There was no evidence of periodic breathing. Oximetry Data: The minimum oxygen saturation was decreased at 86%. The time spent with oxygen saturation less than 88% was 1 minute of the total diagnostic recording time. Snoring Profile: Rare midl snoring was detected during this study. Periodic Limb Movements: The patient's periodic limb movement index was within normal limits at 0 per hour. EEG Profile: The patient's total arousal index was elevated at 35.5 per hour. Virtually all of the arousals were due to respiratory events. There was no epileptiform activity during sleep. Cardiac Profile: EKG showed normal sinus rhythm. No clinically significant arrhythmia was noted. Parasomnias: No parasomnia was noted during this diagnostic study. Gastroesophageal reflux disease 08/17/2019 Age-related nuclear cataract of both eyes 2018 Overview (08/17/2019): Last Assessment & Plan: Defer cataract surgery until signs and symptoms indicate. Pt was educated on the diagnosis. Recommend daily UV protection. Dry eye syndrome of both eyes 02/10/2019 Overview (10/17/2020): Last Assessment & Plan: Mod-Severe KIRAN left eye (OS)>OD. Start Celluvisc drops QID+ both eyes (OU). Cont Systane PRN. Pt ed on dx. RTC for f/u 2 mos. Consider punctal plugs at this visit. Last Assessment & Plan: Ignacio's test showing minimal to no tear production. Concern for Sjogrens as pt also reports dry mouth. (Will alert Rheum). Start Restasis BID both eyes (OU) - recommend OTC artificial tear (Soothe, Systane, Refresh) as needed. Last Assessment & Plan: Improved ocular surface and much better/solid endpoints on refraction. Will discontinue Restasis (burning) and try Xiidra. Recommend Retaine drops 3-4 x/day both eyes (OU) if insurance will not cover Xiidra. Inserted new lower punctal plug right eye (OD). Optic nerve cupping of both eyes 02/10/2019 Overview (06/19/2020): Last Assessment & Plan: Cupping appears Physiologic No FHx Normal IOPs Last Assessment & Plan: Physiologic cupping both eyes (OU). Fields visual field (HVF) and OCT normal. No FHx with normal IOPs. Monitor annually. 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 (AF LURIA, FLUZONE TRIVALENT; 6MO+) (IIV3) 10/10/2014 INFLUENZA VACCINE, QUADR. (F LUZONE; FLULAVAL; FLUARIX; AFLURIA QUADRIVALENT; 6MO+), 0.5 ML (IIV4) 07/28/2019 PNEUMOCOCCAL PPSV23 03/11/2017,08/06/2012 Family History Medical History Relation Name Comments Anxiety Disorder Brother 1 meche Bipolar Disorder Brother 1 meche Depression Brother 1 meche Sleep Disorder - Other Brother 1 meche elias Anxiety Disorder Brother 2 brea Bipolar Disorder Brother 2 brea Depression Brother 2 brea Anxiety Disorder Brother 3 delmy Bipolar Disorder Brother 3 delmy Depression Brother 3 delmy CAD (Coronary Artery Disease) Father Depression Father Sleep Disorder - Other Father elias Diabetes - Type 2 Maternal Grandfather Cancer - Uterine Maternal Grandmother Anxiety Disorder Mother Anxiety Disorder Sister 1 miguel ángel Bipolar Disorder Sister 1 miguel ángel CAD (Coronary Artery Disease) Sister 1 miguel ángel Depression Sister 1 miguel ángel Hypertension Sister 1 miguel ángel Anxiety Disorder Sister 2 lamonte Bipolar Disorder Sister 2 lamonte Cancer - Liver Sister 2 lamonte Depression Sister 2 lamonte Anxiety Disorder Sister 3 maureen Bipolar Disorder Sister 3 maureen Depression Sister 3 maureen Sleep Disorder - Other Sister 3 maureen Anxiety Disorder Sister 4 kaylyn Bipolar Disorder Sister 4 kaylyn Cancer - Pancreatic Sister 4 kaylyn Depression Sister 4 kaylyn Thyroid Disease Sister 4 kaylyn Anxiety Disorder Sister 5 estrella Bipolar Disorder Sister 5 estrella Depression Sister 5 estrella Relation Name Status Comments Brother 1 meche Alive Brother 2 brea Alive Brother 3 delmy Alive Daughter Alive Father Alive Maternal Grandfather Maternal Grandmother Mother Alive Paternal Grandfather Paternal Grandmother Sister 1 miguel ángel Alive Sister 2 lamonte Sister 3 maureen Sister 4 kaylyn Alive Sister 5 estrella Alive Son 1 Alive Son 2 Alive Social History Tobacco Use Types Packs/Day Years Used Date Smoking Tobacco: Every Day Cigarettes 1.5 38.3 Started: 1986 Smokeless Tobacco: Never Tobacco Cessation:Ready to Q uit: Not Asked; Counseling Given: Not Answered Comments:not ready to quit but cutting down 10/2020 down to 10/06 ppd Alcohol Use Standard Drinks/Week Comments Yes 0 (1 standard drink = 0.6 oz pur e alcohol) in past Overall Financial Resource Strain (CARDIA) Answe r Date Recorded Difficulty of Paying Living Expenses Not hard at all 08/17/2019 Hunger Vital Sign Answer Date Recorded Worried About Running Out of Food in the Last Ye ar Never true 08/17/2019 Ran Out of Food in the Last Year Never true 08/17/2019 PRAPARE - Transportation Answer Date Re corded Lack of Transportation (Medical) No 08/17/2019 Lack of Transportation (Non-Medical) No 08/17/2019 Education Answer Date Recorded What is the highest level of school you have completed or the highest degree you have received? GED or equivalent Sex and Gender Information Value Date Recorded Sex Assigned at Not on file Gender Identity Not on file Sexual Orientation Not on file Last Filed Vital Signs Vital Sign Reading Time Taken Comments Blood Pressure 106/67 11/09/2024 3:53 PM PYTHON WEB DEVELOPER Pulse 60 11/09/2024 3:53 PM PYTHON WEB DEVELOPER Temperature 36.6 C (97.8 F) 11/01/2021 7:32 AM PYTHON WEB DEVELOPER Respiratory Rate 18 11/01/2021 7:32 AM PYTHON WEB DEVELOPER Oxygen Saturation 97% 11/01/2021 7:32 AM PYTHON WEB DEVELOPER Inhaled Oxygen Concentration 21% 11/01/2021 2 :37 AM PYTHON WEB DEVELOPER Weight 86.2 kg (190 lb) 11/09/2024 3:53 PM PYTHON WEB DEVELOPER Height 165.1 cm (5' 5 ) 11/09/2024 3:53 PM PYTHON WEB DEVELOPER Body Mass Index 31.62 11/09/2024 3:53 PM PYTHON WEB DEVELOPER Plan of Treatment Upcoming Encounters Date Type Department Care Team (Late st Contact Info) Description 04/10/2025 2:00 PM CDT Office Visit [facility] - Sleep Services [address] [place] [address] Afshan Lemos, APNP-COSTUME DESIGN TEACHER [address] DIV OF PULMONARY/[place] [address] Health Maintenance Due Date Last Done Comments COLOGUARD (AGES 45-75) - COLON CA SCREENING 1973 COLON MONITORING 1973 COLONOSCOPY - COLON CA SCREENING 1973 CT COLONOGRAPHY - COLON CA SCREENING 1973 Colorectal Cancer Screening 1973 FIT - COLON CA SCREENING 1973 FLEX SIG - COLON CA SCREENING 1973 MAMMOGRAM 1973 PAP SMEAR 1973 HIV SCREENING 02/19/1988 DTAP/TDAP/TD VACCINES (1 - Tdap) 02/19/1992 HEPATITIS B VACCINE (1 of 3 - 19+ 3-dose series) 02/19/1992 PNEUMOCOCCAL VACCINE 50+ (2 of 2 - PCV) 03/11/2018 03/11/2017, 08/06/2012 LUNG CANCER SCREENING 2023 ZOSTER VACCINE (1 of 2) 2023 COVID-19 VACCINE (1 - season) 2024 DEPRESSION SCREENING 10/05/2024 MEDICARE AWV CALENDAR YEAR 2024 SCREENING FOR DIABETES 10/31/2024 10/31/2021 INFLUENZA VACCINE (Season Ended) 2025 07/28/2019, 10/10/2014 LIPID TESTING 12/14/2028 12/15/2023, 09/0 05/2023, 12/22/2022, Additional history exists HEPATITIS C SCREENING Completed 03/30/2015 HIB VACCINE Aged Out No longer eligi ble based on patient's age to complete this topic HPV VACCINE Aged Out No longer eligi ble based on patient's age to complete this topic MENINGOCOCCAL (Group B) VACCINE SHARED DECISION-MAKING Aged Out No longer eligible based on patient's age to complete this topic MENINGOCOCCAL GROUPS A/C/Y/W VACCINE Aged Out No longer eligible based on patient's age to complete this topic Procedures Procedure Name Priority Date/Time Associated Diagnosis Comments COMPREHENSIVE METABOLIC PANEL STAT 10/31/2021 10:55 AM PYTHON WEB DEVELOPER Preop examination from Last 3 Months or Most Recently Relevant to Health Maintenance Results * (ABNORMAL) COMPREHENSIVE METABOLIC PANEL (10/31/2021 10:55 AM PYTHON WEB DEVELOPER) BUN 17 7 - 26 mg/dL 10/31/2021 11:37 AM [facility] Creatinine 1.15(H) 0.56 - 0.96 mg/dL 10/31/2021 11:37 AM [facility] Sodium 144 136 - 145 mmol/L 10/31/2021 11:37 AM [facility] Potassium 4.6(H) 3.5 - 4.5 mmol/L 10/31/2021 11:37 AM [facility] Chloride 107 98 - 107 mmol/L 10/31/2021 11:37 AM [facility] CO2 27 22 - 29 mmol/L 10/31/2021 11:37 AM [facility] Glucose 91 70 - 115 mg/dL 10/31/2021 11:37 AM [facility] Calcium 10.8(H) 8.4 - 10.2 mg/dL 10/31/2021 11:37 AM [facility] Protein Total 6.9 6.0 - 8.3 g/dL 10/31/2021 11:37 AM [facility] Albumin 4.0 3.4 - 5.0 g/dL 10/31/2021 11:37 AM [facility] Bilirubin Total 0.9 0.2 - 1.2 mg/dL 10/31/2021 11:37 AM [facility] Alkaline Phosphatase 87 40 - 150 U/L 10/31/2021 11:37 AM [facility] ALT 56(H) 5 - 55 U/L 10/31/2021 11:37 AM [facility] AST 21 5 - 34 U/L 10/31/2021 11:37 AM [facility] Anion Gap 15 8 - 18 10/31/2021 11:37 AM [facility] BUN/Creatinine Ratio 15 7 - 23 10/31/2021 11:37 AM [facility] Osmolality Calculated 299 270 - 300 mOsm/kg 10/31/2021 11:37 AM [facility] Albumin/Globulin Ratio 1.4 1.1 - 2.3 10/31/2021 11:37 AM [facility] eGFR by CKD-EPI 56(L) >=90 mL/min/1.7 3 m2 10/31/2021 11:37 AM [facility] Blood BLOOD SPECIMEN / Unknown Venipuncture / Unknown 10/31/2021 10:55 AM PYTHON WEB DEVELOPER 10/31/2021 11:10 AM [facility] Chalo Pardo MD LAB - CHEMISTRY NIVIA PORTILLO [facility] Organization Address City/State/ZIP Co de Phone Number [facility] [address] [place] [address] [phone] from Last 3 Months or Most Recently Relevant to Health Maintenance Advance Directives * Full Code (Latest Code Status on File) Date Activated Date Inactivated Comments 10/31/2021 6:16 PM 11/01/2021 12:59 PM * Full Code Date Activated Date Inactivated Comments 10/31/2021 9:08 AM 10/31/2021 6:16 PM Care Teams Pe Teacher Relationship Specialty Start Date End Date Willem Stone MD [address] [facility] [address] [facility] [address] [place] [address] PCP - General 01/07/23
--- OUTSIDE RECORDS SUMMARY | 2025-01-11 12:47 | XMS_ITS | Encounter Summary ---
Author Organization [facility] Address [address] [place] [address] Care Team Providers Care Stretcher Operator Name Role Phone Willem Stone MD Primary Care Provider [phone] Reason for Referral * Consultation (Routine) - Denied Specialty Diagnoses / Procedures Referred By Jv t Referred To Contact Neurology Diagnoses Stage 3 chronic kidney disease, unspecified whether stage 3a or 3b CKD (HCC) Jaime Zuniga, ANNELIESE-BICYCLE COURIER [address] [place] [address] [facility] [address] [address] Referral ID Status Reason Start Date Expiration Date V isits Requested Visits Authorized [id number] Denied Specialty Services Required 08/11/2024 08/11/2025 1 0 ET PATCHER Encounter Details Date Type Department Care Team (Latest Contact Info) Description 08/11/2024 Transcribe Orders [facility] - Centralized Scheduling [address] [place] [phone] Jaime Zuniga APRN-BICYCLE COURIER [address] [place] [address] Stage 3 chronic kidney disease, unspecified whether stage 3a or 3b CKD Social History Tobacco Use Types Packs/Day Years Used Date Smoking Tobacco: Every Day Cigarettes 1.5 38.3 Started: 1986 Smokeless Tobacco: Never Comments:not ready to quit b ut cutting down 10/2020 down to / ppd Alcohol Use Standard Drinks/Week Comments No 0 (1 standard drink = 0.6 oz [...] on file Sexual Orientation Not on file documented as of this encounter Plan of Treatment Upcoming Encounters Date Type Department Care Team (Late st Contact Info) Description 04/10/2025 2:00 PM CDT Office Visit [facility] - Sleep Services [address] [place] [id number] Afshan Lemos, APKRYSTAL-BICYCLE COURIER [address] [facility] [address] DIV OF PULMONARY/[place] [address] Scheduled Referrals Name Type Priority Associated Diagnoses Orde r Schedule AMB REFERRAL TO NEUROLOGY Outpatient Referral Routine Stage 3 chronic kidney disease, unspecified whether stage 3a or 3b CKD 1 Occurrences starting 08/11/2024 until 08/11/2025 documented as of this encounter Visit Diagnoses Diagnosis Stage 3 chronic kidney disease, unspecified whether stage 3a or 3b CKD (HCC)- Primary documented in this encounter Care Teams Stretcher Operator Relationship Specialty Start Date End Date Willem Stone MD [address] [place] [address] PCP - General 01/07/23 documented as of this encounter
--- OUTSIDE RECORDS SUMMARY | 2025-01-11 12:47 | XMS_ITS | Clinical Summary ---
Author Organization [facility] Address [address] [address] Care Team Providers Care Water Pump Installer Name Role Phone Afshan Lemos Primary Care Provider Un available Allergies Active Allergy Reactions Criticality Noted Date Comments Hydrocodone Other (see comments),Itching 2020 Iodine 03/12/2021 Medications busPIRone (BUSPAR) 30 MG tablet Take 1 tablet by mouth 2 (two) times a day 11/10/2018 Active folic acid (FOLVITE) 1 MG tablet Take 1 mg by mouth 1 (one) time each day 12/19/2020 Active methotrexate 2.5 MG tablet Take 20 mg by mouth 1 (one) time per week 03/05/2021 Active ziprasidone (GEODON) 40 MG capsule Take 2 capsules by mouth at bed time Active methadone (DOLOPHINE) 10 MG/ML solution Take 44 mg by mouth 1 (one) time each day Active Adalimumab (Humira) 20 MG/0.2ML Prefilled Syringe Kit Inject 20 mg under the skin every 14 (fourteen) days Active Cholecalciferol (Vitamin D3) 25 MCG (1000 UT) capsule Take 25 mcg by mouth 1 (one) time each day Active topiramate (TOPAMAX) 25 MG tablet Take 25 mg by mouth in the morning and 25 mg in the evening. Active Active Problems Problem Noted Date Diagnosed Date Opioid dependence, in remission 06/28/2024 Anxiety disorder 06/28/2024 History of parathyroidectomy 12/03/2021 Hyperplasia of parathyroid 12/03/2021 Psoriatic arthritis 06/25/2021 Thyroid nodule 06/25/2021 Hypercalcemia 03/12/2021 Hyperparathyroidism 03/12/2021 Stage 3a chronic kidney disease 03/08/2021 Moderate smoker (20 or less per day) 03/08/2021 Obstructive sleep apnea syndrome 03/08/2021 Gastroesophageal reflux disease 08/17/2019 Rheumatoid arthritis 02/11/2018 Viral hepatitis C 03/30/2015 Resolved Problems Problem Noted Date Diagnosed Date Resolved Date 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 Family History Medical History Relation Comments Cancer Father Malignant tumor of colon Diabetes Father Heart disease Father Hypertension Father Cancer Mother Malignant tumor of ovary Hypertension Sibling Relation Status Comments Father Alive Mother Alive Sibling Social History Tobacco Use Types Packs/Day Years Used Date Smoking Tobacco: Every Day Cigarettes Smokeless Tobacco: Never Tobacco Cessation:Ready to Q uit: Not Asked; Counseling Given: Not Answered Alcohol Use Standard Drinks/Week Comments Never 0 (1 standard drink = 0.6 oz pure alcohol) Alcoholic Drinks/day: Occasional social drink Comments Unknown Sex and Gender Information Value Date Recorded Sex Assigned at Not on file Legal Sex Female 2:52 PM EDT Gender Identity Not on file Sexual Orientation Not on file Last Filed Vital Signs Vital Sign Reading Time Taken Comments Blood Pressure 128/68 06/28/2024 11:15 AM CDT Pulse 61 06/28/2024 11:15 AM CDT Temperature 36.1 C (97 F) 06/28/2024 11:15 AM CDT Respiratory Rate 18 06/28/2024 11:15 AM CDT Oxygen Saturation 97% 06/28/2024 11:15 AM CDT Inhaled Oxygen Concentration - - Weight 88.5 kg (195 lb) 06/28/2024 11:15 AM CDT Height 165.1 cm (5' 5 ) 12/22/2023 10:16 AM CDT Body Mass Index 32.45 12/22/2023 10:16 AM CDT Plan of Treatment Upcoming Encounters Date Type Department Care Team (Late st Contact Info) Description 07/04/2025 10:15 AM CDT Office Visit [facility] [address] [facility] [address] [place] [id number] Albert Liu MD [address] [facility] [address] [place] [address] Health Maintenance Due Date Last Done Comments Breast Cancer Screening 1973 Hepatitis B Vaccine (1 of 3 - 19+ 3-dose series) 02/19/1992 Pneumococcal Vaccine: Pediat rics (0 to 5 Years) and At-Risk Patients (6 to 64 Years) (3 of 3 - PCV) 03/11/2018 03/11/2017, 08/06/2012 Colorectal Cancer Screening: Annual FOBT 2022 Colorectal Cancer Screening: Colonoscopy 2022 Colorectal Cancer Screening: Sigmoidoscopy 2022 Influenza Vaccine (Season Ended) 2025 07/28/20 19 Insurance UHC MEDICARE [place]ICAID [place] Care Teams Water Pump Installer Relationship Specialty Start Date End Date Afshan Lemos [address] OF PULMONARY/[place] [address] PCP - General Pulmonary Disease 06/26/23
--- OUTSIDE RECORDS SUMMARY | 2025-01-11 12:47 | XMS_ITS | Encounter Summary ---
Author Organization [facility] Address [address] [place] [address] Phone Care Team Providers Care Sprinkler Fitter Apprentice Name Role Phone No, Physician Primary Care Provider [phone] Encounter Details Date Type Department Care Team (Late st Contact Info) Description 06/12/2023 Orders Only [facility] Scanning, Provider Social History Tobacco Use Types Packs/Day Years Used Date Smoking Tobacco: Every Day Smokeless Tobacco: Never Comments Unknown Sex and Gender Information Value Date Recorded Sex Assigned at Not on file Legal Sex Female 3:51 AM BOILER ERECTOR Gender Identity Not on file Sexual Orientation Not on file documented as of this encounter Plan of Treatment Not on file documented as of this encounter Procedures Procedure Name Priority Date/Time Associated Diagnosis Comments SCAN - LABS 06/12/2023 documented in this encounter Results * SCAN - LABS (06/12/2023) us Provider Scanning Edited Result - Final documented in this encounter Visit Diagnoses Not on filedocumented in this encounter Care Teams Sprinkler Fitter Apprentice Relationship Specialty Start Date End Date No, Physician PCP - General 11/07/20 documented as of this encounter
--- OUTSIDE RECORDS SUMMARY | 2025-01-11 13:21 | XMS_ITS | Referral Summary ---
Author Organization [facility] Address [facility] [place] [address] Care Team Providers Care Benzene Worker Name Role Phone No, Physician Primary Care Provider [phone] Encounters Date Type Department Care Team Description 10/13/[address] [facility] [address] [place] [address] Deborah Andrea RPh from Last [...] on file Legal Sex Female 3:51 AM LCPC Gender Identity Not on file Sexual Orientation Not on file Last Filed Vital Signs Vital Sign Reading Time Taken Comments Blood Pressure 104/73 10/12/2024 12:51 PM LCPC Pulse 64 10/12/2024 12:51 PM LCPC Temperature 36.8 C (98.3 F) 10/12/2024 12:51 PM LCPC Respiratory Rate - - Oxygen Saturation 97% 02/08/2015 1:43 PM CDT Inhaled Oxygen Concentration - - Weight 90.7 kg (200 lb) 10/12/2024 12:51 PM LCPC Height 165.1 cm (5' 5 ) 10/12/2024 12:51 PM LCPC Body Mass Index 33.28 10/12/2024 12:51 PM LCPC Plan of Treatment Not on file Procedures Procedure Name Priority Date/Time Associated Diagnosis Comments HEPATITIS C RNA, QUANTITATIVE, PCR Routine 11/07/2020 11:29 AM LCPC High risk medication use Hepatitis C virus infection cured after antiviral drug therapy from Last 3 Months or Most Recently Relevant to Health Maintenance Results * Hepatitis C (HCV) RNA PCR, quantitative (11/07/2020 11:29 AM LCPC) HCV RNA result Not Detected AMELIA SHAIKH Comment: Interpretive data: The quantifiable range of this assay is 15 IU/mL to 100,000,000 IU/mL (1.18 log IU/mL to 8.00 log IU/mL). Testing was performed by the JABARI AmpliPrep/JABARI TaqMan HCV Test version 2.0 ([employer] Testing performed at [facility] Current Interpretive Data was last revised on 2015. Blood specimen (specimen) 11/07/2020 11:29 AM LCPC 11/07/2020 12:05 PM LCPC Jo Braden MD LAB MICROBIOLOGY - GENE [facility] ORDERABLES Final Result AMELIA SHER [facility] Department [place] [address] from Last 3 Months or Most Recently Relevant to Health Maintenance Insurance IDPA [facility] MEDICARE ADVANTAGE [id number] MEDIC[facility] ADVANTAGE [facility] CHOICE PLUS Care Teams Benzene Worker Relationship Specialty Start Date End Date No, Physician PCP - General 11/07/20
--- OUTSIDE RECORDS SUMMARY | 2025-01-11 13:21 | XMS_ITS | Clinical Summary ---
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 [employer] Gender Identity Not on file Sexual Orientation Not on file Obstetrics History Last Filed Vital Signs Vital Sign Reading Time Taken Comments Blood Pressure 104/73 10/12/2024 12:51 PM [employer] Pulse 64 10/12/2024 12:51 PM [employer] Temperature 36.8 C (98.3 F) 10/12/2024 12:51 PM [employer] Respiratory Rate - - Oxygen Saturation 97% 02/08/2015 1:43 PM CDT Inhaled Oxygen Concentration - - Weight 90.7 kg (200 lb) 10/12/2024 12:51 PM [employer] Height 165.1 cm (5' 5 ) 10/12/2024 12:51 PM [employer] Body Mass Index 33.28 10/12/2024 12:51 PM [employer] Plan of Treatment Health Maintenance Due Date [...] RNA, QUANTITATIVE, PCR Routine 11/07/2020 11:29 AM [employer] High risk medication use Hepatitis C virus infection cured after antiviral drug therapy from Last 3 Months or Most Recently Relevant to Health Maintenance Results * Hepatitis C (HCV) RNA PCR, quantitative (11/07/2020 11:29 AM [employer]) Pathologist [facility] HCV RNA result Not Detected [facility] Comment: Interpretive data: The quantifiable range of this assay is 15 IU/mL to 100,000,000 IU/mL (1.18 log IU/mL to 8.00 log IU/mL). Testing was performed by the JABARI AmpliPrep/JABARI TaqMan HCV Test version 2.0 ([employer] Testing performed at [facility] Current Interpretive Data was last revised on 2015. Blood specimen (specimen) 11/07/2020 11:29 AM [employer] 11/07/2020 12:05 PM [employer] us Jo Braden MD LAB MICROBIOLOGY - GENE RAL ORDERABLES Final Result [facility] [place] [address] from Last 3 Months or Most Recently Relevant to Health Maintenance Insurance IDPA [facility] MEDICARE ADVANTAGE [facility] MEDICARE Address: [facility] [address] [place] [address] [facility] MEDICARE ADVANTAGE [facility] MEDICARE Address: [facility] [address] [place] [address] [facility] CHOICE PLUS [facility] HMO/PPO Address: [facility] [address] [place] [address] Care Teams Wood Crew Supervisor Relationship Specialty Start Date End Date No, Physician PCP - General 11/07/20
--- OUTSIDE RECORDS SUMMARY | 2025-01-11 13:22 | XMS_ITS | Encounter Summary ---
Author Organization [facility] Address [address] [place] [address] Care Team Providers Care Machine Plaster Mixer Name Role Phone Willem Stone MD Primary Care Provider Reason for Referral * Consultation (Routine) - Denied Specialty Diagnoses / Procedures Referred By Jv t Referred To Contact Neurology Diagnoses Stage 3 chronic kidney disease, unspecified whether stage 3a or 3b CKD (HCC) Jiame Zuniga, ANNELIESE-SENIOR COURTROOM CLERK [address] [place] [address] [facility] [address] [address] Referral ID Status Reason Start Date Expiration Date V isits Requested Visits Authorized [id number] Denied Specialty Services Required 08/11/2024 08/11/2025 1 0 BLOCK MAKER Encounter Details Date Type Department Care Team (Latest Contact Info) Description 08/11/2024 Transcribe Orders [facility] - Centralized Scheduling [address] [place] [id number] Jaime Zuniga APRN-SENIOR COURTROOM CLERK [address] [place] [address] Stage 3 chronic kidney disease, unspecified whether [...] [facility] [address] [place] [id number] Afshan Lemos, APKRYSTAL-SENIOR COURTROOM CLERK [address] [facility] [address] DIV OF PULMONARY/[place] [address] Scheduled Referrals Name Type Priority Associated Diagnoses Orde r Schedule AMB REFERRAL TO NEUROLOGY Outpatient Referral Routine Stage 3 chronic kidney disease, unspecified whether stage 3a or 3b CKD 1 Occurrences starting 08/11/2024 until 08/11/2025 documented as of this encounter Visit Diagnoses Diagnosis Stage 3 chronic kidney disease, unspecified whether stage 3a or 3b CKD (HCC)- Primary documented in this encounter Care Teams Machine Plaster Mixer Relationship Specialty Start Date End Date Willem Stone MD [address] [place] [address] PCP - General 01/07/23 documented as of this encounter
--- OUTSIDE RECORDS SUMMARY | 2025-01-11 13:22 | XMS_ITS | Clinical Summary ---
Author Organization [facility] Facility Address [address] [address] Care Team Providers Care Senior Project Architect Name Role Phone Afshan Lemos Primary Care [...] Description 07/04/2025 10:15 AM CDT Office Visit [facility] [address] [facility] [address] [place] [id number] Albert Liu MD [address] [facility] [facility] [address] [place] [address] Health Maintenance Due Date Last [...] Insurance UHC MEDICARE [place]ICAID [place] Care Teams Senior Project Architect Relationship Specialty Start Date End Date Afshan Lemos [address] OF PULMONARY/[place] [address] PCP - General Pulmonary Disease 06/26/23
--- OUTSIDE RECORDS SUMMARY | 2025-01-11 13:22 | XMS_ITS | CONTINUITY OF CARE DOCUMENT ---
Author Name mauri dotson Address Unknown Organization [facility] Address [address] [place] [address] Phone [phone] Care Team Providers Care Merchandise Deliverer Name Role Phone Starr ROSS, Isidro Unavailable BARI DÍAZ MD Unavailable [phone] BARI DÍAZ MD Unavailable PROBLEMS Condition Status Date Provider Notes Bradycardia active [facility] Swollen limb active Kacie Herbert MD Tobacco abuse active Kacie Herbert MD half-way methadone use active Kaice tinajero MD Psoriasis active Kacie Herbert MD [...] - Isidro Clements MD Imported from A: [facility] (03-Apr-2022 at 02:08:38 PM) Anaclitic depression completed - Isidro Clements MD Imported from [employer] (03-Apr-2022 at 02:08:38 PM) Anxiety completed - Isidro Clements MD Imported from [employer] (03-Apr-2022 at 02:08:38 PM) Bradycardia completed - Isidro Clements MD Imported from [employer] (03-Apr-2022 at 02:08:38 PM) Bronchial asthma completed - Isidro Clements MD Imported from [employer] (03-Apr-2022 at 02:08:38 PM) Dry eye syndrome of both eyes completed - Isidro Clements MD Imported from [employer] (03-Apr-2022 at 02:08:38 PM) Dry skin completed - Isidro Clements MD Imported from [employer] (03-Apr-2022 at 02:08:38 PM) Enuresis, nocturnal only completed - Isidro forde MD Imported from [employer] (03-Apr-2022 at 02:08:38 PM) Erythrocytosis completed - Isidro Clements MD Imp orted from [employer] (03-Apr-2022 at 02:08:38 PM) Fibromyalgia completed - Isidro Clements MD Imported from [employer] (03-Apr-2022 at 02:08:38 PM) Gastroesophageal reflux disease completed - Isidro Clements MD Imported from [employer] (03-Apr-2022 at 02:08:38 PM) Hepatitis C virus infection completed 2014 - Isidro Clements MD Imported from [employer] (03-Apr-2022 at 02:08:38 PM) History of parathyroidectomy completed 11/07/00 - Isidro Clements MD Imported from [employer] (03-Apr-2022 at 02:08:38 PM) Hypercalcemia completed - Isidro Clements MD Imported from [employer] (03-Apr-2022 at 02:08:38 PM) Hyperparathyroidism completed - Isidro Clements MD Imported from [employer] (03-Apr-2022 at 02:08:38 PM) Hyperplasia of parathyroid completed 12/03 - Isidro Clements MD Imported from [employer] (03-Apr-2022 at 02:08:38 PM) Ingrowing toenail completed - Isidro Clements MD Imported from [employer] (03-Apr-2022 at 02:08:38 PM) Insomnia completed - Isidro Clements MD Imported from [employer] (03-Apr-2022 at 02:08:38 PM) Lumbago completed - Isidro Clements MD Imported from [employer] (03-Apr-2022 at 02:08:38 PM) Muscle spasms of neck completed - Isidro Clements MD Imported from [employer] (03-Apr-2022 at 02:08:38 PM) Narcotic drug use completed - Isidro Clements MD Imported from [employer] (03-Apr-2022 at 02:08:38 PM) Onychomycosis completed - Isidro Clements MD Imported from [employer] (03-Apr-2022 at 02:08:38 PM) Optic nerve cupping of both eyes completed - Isidro Clements MD Imported from [employer] (03-Apr-2022 at 02:08:38 PM) Osteoarthrosis completed - Isidro Clements MD Imported from [employer] (03-Apr-2022 at 02:08:38 PM) Pain of hand completed - Isidro Clements MD Imported from [employer] (03-Apr-2022 at 02:08:38 PM) Pathological personality completed - Isidro Clements MD Imported from [employer] (03-Apr-2022 at 02:08:38 PM) Preglaucoma of both eyes completed - Isidro Clements MD Imported from [employer] (03-Apr-2022 at 02:08:38 PM) Psoriasis completed - Isidro Clements MD Imported from [employer] (03-Apr-2022 at 02:08:38 PM) Psoriasis with arthropathy completed 04/05 - Isidro Clements MD Imported from [employer] (03-Apr-2022 at 02:08:38 PM) Refractive error completed - Isidro Clements MD Imported from [employer] (03-Apr-2022 at 02:08:38 PM) Rheumatoid arthritis completed - Isidro Clements MD Imported from [employer] (03-Apr-2022 at 02:08:38 PM) Sleep apnea treated with nocturnal BiPAP completed - Isidro Clements MD Imported from [employer] (03-Apr-2022 at 02:08:38 PM) Snoring completed - Isidro Clements MD Imported from [employer] (03-Apr-2022 at 02:08:38 PM) Stage 3a chronic kidney disease completed - Isidro Clements MD Imported from [employer] (03-Apr-2022 at 02:08:38 PM) Swelling completed - Isidro Clements MD Imported from [employer] (03-Apr-2022 at 02:08:38 PM) Tear of medial meniscus of knee, current completed - Isidro Clements MD Imported from [employer] (03-Apr-2022 at 02:08:38 PM) Thyroid nodule completed - Isidro Clements MD Imported from [employer] (03-Apr-2022 at 02:08:38 PM) Tobacco dependence syndrome active Isidro pearson MD Imported from [employer] (03-Apr-2022 at 02:08:38 PM) Trochanteric bursitis completed - Isidro Clements MD Imported from [employer] (03-Apr-2022 at 02:08:38 PM) Erythrocytosis active Isidro Clements MD ENCOUNTERS Date Type Provider Location Encounter Diag nosis 04/28 - 04/29 In-person encounter Office Visit Isidro Clements MD [facility] Age-related nuclear cataract of both eye [...] In-person encounter Office Visit Isidro Clements MD [facility] Cardiology examinationPsoriatic arthriti sBipolar disorderBerger's disease, ?Diminished pedal pulsesTobacco dependence syndrome 04/15 - 04/15 In-person encounter Office Visit Kacie Hebrert MD [facility] 02/11 - 02/11 In-person encounter Office Visit Kacie Herbert MD [facility] Swollen limbTobacco abuseLong term metha done [...] mg oral qieuser qieuser Imported from [facility]A: [employer] (03-Apr-20 at 02:08:38 PM) ziprasidone HCl 20 mg capsule active null qieuser qieuser Imported from [employer]: [employer] (03-Apr-20 at 02:08:38 PM) raNITIdine active null qieuser qieuser Imported from [employer]: [employer] (03-Apr-20 at 02:08:38 PM) nystatin 100,000 unit/gram ointment active null qieuser qieuser Imported from [employer]: [employer] (03-Apr-20 at 02:08:38 PM) naloxone active null qieuser qieuser Imported from [employer]: [employer] (03-Apr-20 at 02:08:38 PM) mometasone 0.1% ointment active null qieuser qieuser Imported from [employer]: [employer] (03-Apr-20 at 02:08:38 PM) metronidazole 500 mg tablet active null qieuser qieuser Imported from [employer]: [employer] (03-Apr-20 at 02:08:38 PM) methotrexate sodium 2.5 mg tablet completed 20 mg oral - qieuser qieuser Imported from [employer]: [employer] (03-Apr-20 at 02:08:38 PM) methotrexate sodium 2.5 mg tablet active Oral qieuser qieuser Imported from [employer]: [employer] (03-Apr-20 at 02:08:38 PM) methadone 10 mg/mL concentrate active 20 mg oral qieuser qieuser Imported from [employer] (03-Apr-20 at 02:08:38 PM) methadone 10 mg/mL solution active null qieuser qieuser Imported from [employer] (03-Apr-20 at 02:08:38 PM) lidocaine active null qieuser qieuser Imported from [employer]: [employer] (03-Apr-20 at 02:08:38 PM) ketoconazole 2% cream active null qieuser q[employer]user Imported from [employer] (03-Apr-20 at 02:08:38 PM) gentian patrick 1% solution active .5 mL topical qieuser qieuser Imported from [employer] (03-Apr-20 at 02:08:38 PM) furosemide 20 mg tablet active null qieuser [employer]user Imported from [employer] (03-Apr-20 at 02:08:38 PM) folic acid 1 mg tablet completed 1 mg oral - qieuser qieuser Imported from [employer] (03-Apr-20 at 02:08:38 PM) folic acid 1 mg tablet active 1 mg Oral qieuser qieuser Imported from [employer] (03-Apr-20 at 02:08:38 PM) fluconazole 150 mg tablet active null qieuser q[employer]user Imported from [employer] (03-Apr-20 at 02:08:38 PM) docusate calcium 240 mg capsule active null qieuser [employer]user Imported from [employer] (03-Apr-20 at 02:08:38 PM) diclofenac sodium 1% gel active 2 g topical qieuser qieuser Imported from [employer] (03-Apr-20 at 02:08:38 PM) cycloSPORINE active 1 [drp] each eye qieuser qieuser Imported from [employer] (03-Apr-20 at 02:08:38 PM) clobetasol 0.05% cream active topical qieuser qieuser Imported from [employer] (03-Apr-20 at 02:08:38 PM) calcium carbonate 200 mg calcium (500 mg) tablet,chewable active null qieuser qieuser Imported from [employer] (03-Apr-20 at 02:08:38 PM) buspirone 30 mg tablet active 30 mg oral qieuser qieuser Imported from [employer] (03-Apr-20 at 02:08:38 PM) baclofen 10 mg tablet active null qieuser qieuser Imported from [employer]: [facility] (03-Apr-20 at 02:08:38 PM) ammonium lactate 12% lotion active null qieuser qieuser Imported from [employer]: [facility] (03-Apr-20 at 02:08:38 PM) albuterol sulfate 90 mcg/actuation HFA aerosol inhaler active null qieuser qieuser Imported from [employer]: [employer] (03-Apr-20 at 02:08:38 PM) albuterol sulfate 90 mcg/actuation HFA aerosol inhaler active 2 {puff} Inhalation qieuser qieuser Imported from [employer]: [employer] (03-Apr-20 at 02:08:38 PM) Xiidra 5% dropperette active null qieuser qieuser Imported from [employer]: [facility] (03-Apr-20 at 02:08:38 PM) quetiapine 25 mg tablet active null qieuser qieuser Imported from [employer]: [employer] (03-Apr-20 at 02:08:38 PM) Drug or medicament active 80 mg Oral qieuser qieuser Imported from [employer]: [facility] (03-Apr-20 at 02:08:38 PM) Drug or medicament active 30 mg Oral qieuser qieuser Imported from [employer]: [facility] (03-Apr-20 at 02:08:38 PM) Drug or medicament active 80 mg Oral qieuser qieuser Imported from [employer]: [employer] (03-Apr-20 at 02:08:38 PM) Climara Pro 0.045-0.015 mg/24 hr patch weekly active null qieuser qieuser Imported from [employer]: [facility] (03-Apr-20 at 02:08:38 PM) folic acid [...] Payer name Policy type / Coverage type [place] red libertarian ID AARP MEDICARE ADVANTAGE ([facility] COMPLETE PPO) Other [id number] HEALTHCARE AND FAMILY SERVICES Medicaid 0 [id number] ADVANCE DIRECTIVES Name Date DISCUSSED - NO DECISION MADE DISCUSSED - NO DECISION MADE TREATMENT PLAN Date Name Performer [id number],C, A lthough she still has symptoms, I do not think they are based on vascular disease. I have recommended she stop smoking but I don't think she has Buergher's disease. Isidro Clements MD [id number],S, T he Patient was reencouraged to stop smoking. Isidro Clements MD [id number],C,Will do an AB I Isidro Clements MD [id number],C,Advised to st op smoking. Kacie Herbert MD [id number],C,Management as per yourself. Kacie Herbert MD [id number],C,I n sinus rhythm. Her recent Telesentry showed sinus rhythm and no other abnormality. Stress test showed normal perfusion and echo showed normal LV size and function. Kacie Herbert MD [id number],C,T rouble with pain in her hips and is due to be seen at [facility] Kacie Herbert MD [id number],B, Kacie tinajero MD [id number],S, Kacie tinajero MD Cardiology: A lthough she [...] and is due to be seen at [facility] Kacie Herbert MD Cardiology [place] [...]
--- OUTSIDE RECORDS SUMMARY | 2025-01-11 13:22 | XMS_ITS | Clinical Summary ---
Author Organization [facility] Address [address] [place] [address] Care Team Providers Care Crank Hand Name Role Phone Willem Stone MD Primary Care Provider Source Comments [facility],non-owned Affiliates and Associated Physician Practices is amultiple site organization consisting of ambulatory clinics and hospital sitesin [place], [place], [place] and [place]. This disclosure is being madepursuant to the Care Everywhere program and may not contain all information available regarding this patient. Last updated 18.[facility] [employer] Allergies Active Allergy Reactions Criticality Noted Date [...] Department Care Team Description 11/09/2024 4:00 PM WHITE WASHER PILER Office Visit [facility] [address] [place] [address] Afshan Lemos, JOHNNIE-PAPERHANGER ASSISTANT Central sleep apnea (Primary Dx); ELIAS (obstructive [...] Comments Blood Pressure 106/67 11/09/2024 3:53 PM WHITE WASHER PILER Pulse 60 11/09/2024 3:53 PM WHITE WASHER PILER Temperature 36.6 C (97.8 F) 11/01/2021 7:32 AM WHITE WASHER PILER Respiratory Rate 18 11/01/2021 7:32 AM WHITE WASHER PILER Oxygen Saturation 97% 11/01/2021 7:32 AM WHITE WASHER PILER Inhaled Oxygen Concentration 21% 11/01/2021 2 :37 AM WHITE WASHER PILER Weight 86.2 kg (190 lb) 11/09/2024 3:53 PM WHITE WASHER PILER Height 165.1 cm (5' 5 ) 11/09/2024 3:53 PM WHITE WASHER PILER Body Mass Index 31.62 11/09/2024 3:53 PM WHITE WASHER PILER Plan of Treatment Upcoming Encounters Date Type Department Care Team (Late st Contact Info) Description 04/10/2025 2:00 PM CDT Office Visit [facility] - [facility] [address] [place] [address] Afshan Lemos, APNP-PAPERHANGER ASSISTANT [address] OF PULMONARY/[place] [address] Health Maintenance Due Date Last Done Comments [...] COMPREHENSIVE METABOLIC PANEL STAT 10/31/2021 10:55 AM WHITE WASHER PILER Preop examination from Last 3 Months or Most Recently Relevant to Health Maintenance Results * (ABNORMAL) COMPREHENSIVE METABOLIC PANEL (10/31/2021 10:55 AM WHITE WASHER PILER) BUN 17 7 - 26 mg/dL 10/31/2021 11:37 AM [facility] Creatinine 1.15(H) 0.56 - 0.96 mg/dL 10/31/2021 11:37 AM [facility] Sodium 144 136 - 145 mmol/L 10/31/2021 11:37 AM [facility] Potassium 4.6(H) 3.5 - 4.5 mmol/L 10/31/2021 11:37 AM [facility] Chloride 107 98 - 107 mmol/L 10/31/2021 11:37 AM [facility] CO2 27 22 - 29 mmol/L 10/31/2021 11:37 AM [facility] Glucose 91 70 - 115 mg/dL 10/31/2021 11:37 AM [facility] Calcium 10.8(H) 8.4 - 10.2 mg/dL 10/31/2021 11:37 AM [facility] Protein Total 6.9 6.0 - 8.3 g/dL 10/31/2021 11:37 AM [facility] Albumin 4.0 3.4 - 5.0 g/dL 10/31/2021 11:37 AM [facility] Bilirubin Total 0.9 0.2 - 1.2 mg/dL 10/31/2021 11:37 AM [facility] Alkaline Phosphatase 87 40 - 150 U/L 10/31/2021 11:37 AM [facility] ALT 56(H) 5 - 55 U/L 10/31/2021 11:37 AM [facility] AST 21 5 - 34 U/L 10/31/2021 11:37 AM [facility] Anion Gap 15 8 - 18 10/31/2021 11:37 AM [facility] BUN/Creatinine Ratio 15 7 - 23 10/31/2021 11:37 AM [facility] Osmolality Calculated 299 270 - 300 mOsm/kg 10/31/2021 11:37 AM [facility] Albumin/Globulin Ratio 1.4 1.1 - 2.3 10/31/2021 11:37 AM [facility] eGFR by CKD-EPI 56(L) >=90 mL/min/1.7 3 m2 10/31/2021 11:37 AM [facility] Blood BLOOD SPECIMEN / Unknown Venipuncture / Unknown 10/31/2021 10:55 AM WHITE WASHER PILER 10/31/2021 11:10 AM [facility] Chalo Pardo MD LAB - CHEMISTRY NIVIA PORTILLO [facility] Organization Address City/State/ZIP Co de Phone Number [facility] [address] [place] [address] [phone] from Last 3 Months or Most Recently Relevant to Health Maintenance Advance Directives * Full Code (Latest Code Status on File) Date Activated Date Inactivated Comments 10/31/2021 6:16 PM 11/01/2021 12:59 PM * Full Code Date Activated Date Inactivated Comments 10/31/2021 9:08 AM 10/31/2021 6:16 PM Care Teams Crank Hand Relationship Specialty Start Date End Date Willem Stone MD [address] [place] [address] PCP - General 01/07/23
--- OUTSIDE RECORDS SUMMARY | 2025-01-11 13:22 | XMS_ITS | Encounter Summary ---
Author Organization [facility] Address [address] [place] [address] Phone Care Team Providers Care Treater Name Role Phone No, Physician Primary Care Provider [phone] Encounter Details Date Type Department Care Team (Late st Contact Info) Description 06/12/2023 Orders Only [facility] Scanning, Provider Social History Tobacco Use Types Packs/Day Years Used Date Smoking Tobacco: Every Day Smokeless Tobacco: Never Comments Unknown Sex and Gender Information Value Date Recorded Sex Assigned at Not on file Legal Sex Female 3:51 AM ADVANCED CL[employer]ICAL SPECIALIST Gender Identity Not on file Sexual Orientation [...] on filedocumented in this encounter Care Teams Treater Relationship Specialty Start Date End Date No, Physician PCP - General 11/07/20 documented as of this encounter
== END 2025-01-11 13:49 | disposition home or self-care (01) ==
PROVIDERS: Emergency Provider Emergency Medicine; PCP Family Medicine
DX: R07.9 Chest pain, unspecified (principal); M17.11 Unilateral primary osteoarthritis, right knee; F31.9 Bipolar disorder, unspecified; F17.210 Nicotine dependence, cigarettes, uncomplicated; Z90.89 Acquired absence of other organs; Z90.49 Acquired absence of other specified parts of digestive tract
CPT/HCPCS: 36415; 71046; 80053; 83690; 83880; 84484; 85025; 85055; 85380; 85610; 85730; 93005; 99284; A9270